=== PATIENT | female | born 1930 | race Caucasian/White ===

== ENCOUNTER → 2016-06-02 | Outpatient (CLI) | payer MEDICARE, BC ==
[2016-05-19 10:27] VITALS: BP 134/63
[~2016-06-02] MED LIST: AMLO10TA2 PO; AMLO2.5T2 PO; AMLO5TAB2 PO; ASPI81TA2 PO; ASPI81TA9 PO; ATOR10TA60 PO; BACI1TAB2 PO; BENZ100C PO; CARV12.52 PO; CARV25TA2 PO; CARV3.122 PO; CHLO25TA PO; CHOL100013 PO; CIPR250T30 PO; CLIN300C86; CLIN300C86 PO; CLON0.1T; CLON0.1T PO; CLON1PAT2 TD; CLON1PAT2 TP; CRESTOR20 MG; DOCU-27 PO; FURO40TA4 PO; HYDR-2762 PO; INSU100I17 SQ; INSU100I18 SQ; INSU100I7 SQ; IPRA3AMP IH; LOSA100T6 PO; LOSA50TA6; MAGN400T22 PO; MECL25TA PO; METO10TA5 PO; METO10TA81 PO; METO25TA2; METO25TA9 PO; METO5TAB55 PO; OMEP40CA5 PO; ONDA4TAB12 PO; POTA10CA PO; SACC250C PO; SULF1TAB24; WARF1TAB PO; WARF2TAB7 PO; WARF3TAB; WARF3TAB PO; WARF3TAB7 PO; WARF4TAB PO; WARF4TAB7 PO
[2016-06-02 10:10] LABS: BASO % 1 % (0-3); EOS % 1 % (0-3); LYMPH # 1.2 x10^3/uL (1.0-4.8); LYMPH % 30 % (24-48); MEAN CORPUSCULAR HEMOGLOBIN 27 pg (25-35); MEAN CORPUSCULAR HGB CONC 32 g/dL (31-37); MEAN CORPUSCULAR VOLUME 83 fL (79-100); MONO # 0.4 x10^3/uL (0.0-1.1); MONO % 10 % (0-9); NEUT # 2.4 x10^3uL (1.8-7.7); NEUT % 58 % (31-73); PLATELET COUNT 132 x10^3/uL (140-400); RED BLOOD COUNT 3.72 x10^6/uL (3.50-5.40); WHITE BLOOD COUNT 4.1 x10^3/uL (4.0-11.0)
[2016-06-02 10:21] LABS: ALBUMIN 3.8 g/dL (3.4-5.0); CALCIUM 9.1 mg/dL (8.5-10.1); CREATININE 3.1 mg/dL (0.6-1.0); GFR 14.2; MAGNESIUM 1.4 mg/dL (1.8-2.4); PHOSPHORUS 4.1 mg/dL (2.6-4.7)
[2016-06-03 08:10] LABS: CALCIUM PTH 9.2 mg/dL (8.7-10.3); CREATININE PTH 2.95 mg/dL (0.57-1.00); PHOSPHORUS PTH 3.9 mg/dL (2.5-4.5); PTH INTACT 131 pg/mL (15-65); eGFR IF AFRICAN AMERICAN 16 (>59); eGFR IF NONAFRICAN AMERICAN 14 (>59)
== END | disposition home or self-care (01) ==
LOC: LAB 09:26
PROVIDERS: ATTEND Nurse Practitioner Family
DX: I12.9 Hypertensive chronic kidney disease with stage 1 through stage 4 chronic kidney disease, or unspecified chronic kidney disease (principal); N18.4 Chronic kidney disease, stage 4 (severe); N17.9 Acute kidney failure, unspecified; D63.1 Anemia in chronic kidney disease; E11.21 Type 2 diabetes mellitus with diabetic nephropathy
CPT/HCPCS: 36415; 80069; 83735; 83970; 85027; 96372

== ENCOUNTER 2016-06-27 16:58 | Inpatient (IN) | payer MEDICARE, BC ==
[~2016-06-27] VITALS: Ht 154.9 cm; Wt 53.2 kg
--- NOTE | 2016-06-27 17:48 | EKG ---
[address] [address] Test Date: 2016-06-27 Test Time: 17:18:26 Pat Name: JAMEEL AC Department: Room: Gender: F [employer] Supervisor: PATY : 1930 Requested By: KAITLIN SHEIKH Order Number: [id number] Reading MD: Federico Biswas Measurements Intervals [place] Rate: 78 P: DE: QRS: 5 QRSD: 84 T: 5 QT: 360 QTc: 414 Interpretive Statements SINUS RHYTHM Electronically Signed On 06-29-2016 15:36:31 CDT by Federico Biswas
[2016-06-27 18:15] LABS: BILIRUBIN,URINE NEG (NEG); CLARITY,URINE HAZY; COLOR,URINE YELLOW; GLUCOSE,URINE NEG (NEG); NITRITE,URINE NEG (NEG); UROBILINOGEN,URINE 0.2 mg/dL (0.2 mg/dL)
[2016-06-27 18:16] LABS: BACTERIA,URINE 0 /HPF (0-FEW)
[2016-06-27 18:17] LABS: SQUAMOUS EPITHELIAL CELL,UR MANY /LPF
[2016-06-27 18:25] LABS: HYALINE CASTS, URINE FEW /HPF
[2016-06-27 19:07] LABS: BASO % 1 % (0-3); EOS % 1 % (0-3); HEMATOCRIT 29.4 % (36.0-47.0); HEMOGLOBIN 9.4 g/dL (12.0-15.5); LYMPH # 1.3 x10^3/uL (1.0-4.8); LYMPH % 30 % (24-48); MEAN CORPUSCULAR HEMOGLOBIN 27 pg (25-35); MEAN CORPUSCULAR HGB CONC 32 g/dL (31-37); MEAN CORPUSCULAR VOLUME 83 fL (79-100); MONO # 0.4 x10^3/uL (0.0-1.1); MONO % 9 % (0-9); NEUT # 2.6 x10^3uL (1.8-7.7); NEUT % 59 % (31-73); PLATELET COUNT 159 x10^3/uL (140-400); RED BLOOD COUNT 3.55 x10^6/uL (3.50-5.40); RED CELL DISTRIBUTION WIDTH 16.3 % (11.5-14.5); WHITE BLOOD COUNT 4.4 x10^3/uL (4.0-11.0)
--- NOTE | 2016-06-27 19:21 | RAD ---
Examination: CT head without contrast. HISTORY History of dizziness, vision changes. COMPARISON 03/23/2016. TECHNIQUE Axial CT images of the head without contrast. Exposure: One or more of the following dose reduction technique were utilized for this examination: 1. Automated exposure control. 2.Adjustment of MA and /or KV according to patient size. 3. Use of iterative reconstruction technique. Findings: There is no evidence of midline shift. Moderate bilateral periventricular white matter hypodensities likely chronic small vessel ischemic disease. There is no acute intracranial bleed or extra-axial fluid collection identified. The casiano-white matter differentiation is maintained. The visualized basal cisterns are not uneffaced. The visualized paranasal sinuses, mastoid air cells are clear. IMPRESSION No acute intracranial findings. Electronically signed by: Yassine Lutz (Jun 27, 2016 19:20:12)
--- NOTE | 2016-06-27 19:38 | ED.ADGEN ---
Past History Past Medical History: A-Fib, Diabetes, GERD, Heart Disease, Hypertension, Renal Disease, Other Past Surgical History: Appendectomy, Cholecystectomy, Coronary Bypass Surgery, Hysterectomy, Other Smoking: Non-smoker Alcohol Use: None Drug Use: None Adult General Chief Complaint Chief Complaint "My eyes were twittering today.. no vision changes.. it just seemed like they were jerky... It is not doing it now.. but it happens every so often.. I got this new pace maker.. and I even called them... they said it would not may both my eyes jerk.. .. I am getting treated for sinusitis.. by Dr. Collins.... and I do have bad kidneys... I see [facility] for.the kidneys... .. and I go to [facility] for the cardiac stuff.. it is just irritating... every thing else is working... " HPI HPI Patient is a 86 year old female who presents with above hx and complaints of what she describes as nystagmus. Patient states no particular vision field is affected.. Terminal positioning of eyes does not induce nystagmus currently. It does not occur when he went up or down stairs. It does not occur with movement of head or neck. Patient denies any mental status changes or confusion. Denies any weakness or difficulty with ambulation. Patient denies any recent trauma. Patient recently being treated for sinusitis by Dr. Collins and antibiotic. No other changes in meds. No history of travel or ill contacts. Patient has extensive medical history with coronary artery disease , bypass surgery 4. New pacemaker placement,.. History of hysterectomy , bladder lift, cholecystectomy, chronic renal disease , GERD, DVT, Kidney stones, Severe arthritis, Afib, ,diabetes , hypertension, frequent urinary tract infections. Daughter had bedside states she appears to be at her baseline both mentally and physically. Daughter has not witnessed the terminal nystagmus. Multiple attempts to induce nystagmus in exam room without success. Pt. advises she will not be admitted. Pt. just wants to see if anything can be done out pt. Pt. advises if it is her kidneys.. she will not do any dialysis in any form. Review of Systems Review of Systems Constitutional: Denies fever or chills [] Eyes: Denies change in visual acuity, redness, or eye pain [] HENT: Denies nasal congestion or sore throat [] Respiratory: Denies cough or shortness of breath [] Cardiovascular: No additional information not addressed in HPI [] GI: Denies abdominal pain, nausea, vomiting, bloody stools or diarrhea [] : Denies dysuria or hematuria [] Musculoskeletal: Denies back pain or joint pain. Complaints of generalized fatigue Integument: Denies rash or skin lesions [] Neurologic: Denies headache, focal weakness or sensory changes [] complaints of nystagmus and dizziness Endocrine: Denies polyuria or polydipsia [] Family History Family History Noncontributory Current Medications Current Medications See nursing for home meds Allergies Allergies Allergies Coded Allergies Type Severity Reaction Last Updated Verified exenatide Allergy Intermediate Nausea and Vomiting 04/19/16 Yes oxycodone Allergy Intermediate Nausea and Vomiting 11/27/14 Yes pregabalin Allergy Intermediate Rash 04/19/16 Yes Physical Exam Physical Exam Constitutional: , no acute distress, non-toxic appearance. [] HENT: Normocephalic, atraumatic, bilateral external ears normal, oropharynx moist, no oral exudates, nose normal. [] Eyes: PERRLA, EOMI, conjunctiva normal, no discharge. No nystagmus. Fundus generally benign. No appreciable field deficits Neck: Normal range of motion, no tenderness, supple, no stridor. No bruits appreciated Cardiovascular:Heart rate regular rhythm, no murmur [] Lungs & Thorax: Bilateral breath sounds clear to auscultation. Old surgical scar. Pace maker scar Abdomen: Bowel sounds normal, soft, no tenderness, no masses, no pulsatile masses. [Old surgical scars. Patient declines rectal exam this time. Skin: Warm, dry, no erythema, no rash. Poor turgor Back: No tenderness, no CVA tenderness. Mild kyphosis Extremities: No tenderness, no cyanosis, no clubbing, ROM intact, no edema. Arthritic changes Neurologic: Alert and oriented X 3, normal motor function, normal sensory function, no focal deficits noted. DTR +2 patella and brachial. Right-hand dominant distal vibratory intact Psychologic: Affect anxious,, judgement normal, mood normal. [] Current Patient Data Vital Signs Vital Signs Date Time Temp Pulse Resp B/P Pulse Ox O2 Delivery O2 Flow Rate FiO2 06/27/16 17:05 98.3 71 14 100 Room Air Lab Results Laboratory Tests Test 06/27/16 17:24 06/27/16 17:34 06/27/16 19:15 White Blood Count 4.4x10^3/uL (4.0-11.0) Red Blood Count 3.55x10^6/uL (3.50-5.40) Hemoglobin 9.4g/dL (12.0-15.5) L Hematocrit 29.4% (36.0-47.0) L Mean Corpuscular Volume 83fL (79-100) Mean Corpuscular Hemoglobin 27pg (25-35) Mean Corpuscular Hemoglobin Concent 32g/dL (31-37) Red Cell Distribution Width 16.3% (11.5-14.5) H Platelet Count 159x10^3/uL (140-400) Neutrophils (%) (Auto) 59% (31-73) Lymphocytes (%) (Auto) 30% (24-48) Monocytes (%) (Auto) 9% (0-9) Eosinophils (%) (Auto) 1% (0-3) Basophils (%) (Auto) 1% (0-3) Neutrophils # (Auto) 2.6x10^3uL (1.8-7.7) Lymphocytes # (Auto) 1.3x10^3/uL (1.0-4.8) Monocytes # (Auto) 0.4x10^3/uL (0.0-1.1) Eosinophils # (Auto) 0.0x10^3/uL (0.0-0.7) Basophils # (Auto) 0.0x10^3/uL (0.0-0.2) Erythrocyte Sedimentation Rate 30 (0-25) H Sodium Level 144mmol/L (136-145) Potassium Level 5.2mmol/L (3.5-5.1) H Chloride Level 111mmol/L (98-107) H Carbon Dioxide Level 19mmol/L (21-32) L Anion Gap 14 (6-14) Blood Urea Nitrogen 50mg/dL (7-20) H Creatinine 2.7mg/dL (0.6-1.0) H Estimated GFR (Cockcroft-Gault) 16.7 Glucose Level 140mg/dL (70-99) H Calcium Level 9.7mg/dL (8.5-10.1) Total Bilirubin 0.5mg/dL (0.2-1.0) Direct Bilirubin 0.1mg/dL (0.0-0.2) Aspartate Amino Transferase (AST) 79U/L (15-37) H Alanine Aminotransferase (ALT) 55U/L (14-59) Alkaline Phosphatase 106U/L (46-116) Creatine Kinase 36U/L (26-192) Creatine Kinase MB (Mass) 0.6ng/mL (0.0-3.6) Creatine Kinase MB Relative Index 1.7% (0-4) Troponin I Quantitative 0.023ng/mL (0-0.055) C-Reactive Protein 1.7mg/L (0-3.3) Total Protein 7.7g/dL (6.4-8.2) Albumin 4.1g/dL (3.4-5.0) Urine Collection Type Unknown Urine Color Yellow Urine Clarity Hazy Urine pH 5.0 Urine Specific [place] 1.010 Urine Protein 30 mg/dl (NEG-TRACE) Urine Glucose (UA) Negmg/dL (NEG) Urine Ketones (Stick) Negmg/dL (NEG) Urine Blood Neg (NEG) Urine Nitrite Neg (NEG) Urine Bilirubin Neg (NEG) Urine Urobilinogen Dipstick 0.2mg/dL (0.2 mg/dL) Urine Leukocyte Esterase Trace (NEG) Urine RBC 1-2/HPF (0-2) Urine WBC 5-10/HPF (0-4) Urine Squamous Epithelial Cells Many/LPF Urine Bacteria 0/HPF (0-FEW) Urine Hyaline Casts Few/HPF Urine Mucus Mod/LPF Prothrombin Time 17.8SEC (9.4-11.4) H Prothrombin Time INR 1.7 (0.9-1.1) H PTT 28SEC (23-33) EKG EKG My interpretation of EKG shows a sinus rhythm at 78 bpm. With no acute findings of STEMI or marked morphology changes. Radiology/Procedures Radiology/Procedures My interpretation CT head shows no shift, mass, edema, bleed, or fracture. Some mild generalized at the appropriate for age. No findings of signficant sinusitis []. . Chest x-ray pending at time of admission. Course & Med Decision Making Course & Med Decision Making Pertinent Labs and Imaging studies reviewed. (See chart for details). Pt. did relay hx of intake of bananas daily Informed delay in labs because they are being sent to [facility] to be ran. Discussed presentation, testing and treatment plan with Dr. Collins- Will admit for further evaluation and treatment. [] Final Impression Final Impression 1. Complaints of terminal nystagmus [] 2. Urinary tract infection 3. Anemia-normocytic 4. Acute on chronic renal failure 5. Hyperkalemia Problems: Dragon Disclaimer Dragon Disclaimer This electronic medical record was generated, in whole or in part, using a voice recognition dictation system. SLADE ARIAS MD Jun 27, 2016 19:38
[2016-06-27 20:13] LABS: SEDIMENTATION RATE 30 (0-25)
[2016-06-27 20:54] LABS: ALBUMIN 4.1 g/dL (3.4-5.0); TOTAL PROTEIN 7.7 g/dL (6.4-8.2)
[2016-06-27 20:55] LABS: CALCIUM 9.7 mg/dL (8.5-10.1)
[2016-06-27 21:03] LABS: CREATININE 2.7 mg/dL (0.6-1.0); GFR 16.7
[2016-06-27 21:08] LABS: POTASSIUM 5.2 mmol/L (3.5-5.1); TOTAL BILIRUBIN 0.5 mg/dL (0.2-1.0)
[2016-06-27 21:18] LABS: DIRECT BILIRUBIN 0.1 mg/dL (0.0-0.2)
[2016-06-27] MEDS ORDERED: SODIUM BICARB ADULT 8.4% 50 MEQ/50 ML DISP.SYRIN. IV ONE (22:30)
[2016-06-27] MEDS ORDERED: DEXTROSE 50% 25 GM / 50ML DISP.SYRIN. IV ONE (22:30)
[2016-06-27] MEDS ORDERED: INSULIN REGULAR 100 UNIT/ML 10ML VIAL. IV ONE (22:30)
[2016-06-27] MEDS ORDERED: SODIUM POLYSTYRENE SULFONATE 15 GM/60 ML ORAL.SUSP. PO ONE (22:30)
[2016-06-27] MEDS ORDERED: CALCIUM CHLORIDE 1,000 MG/10 ML VIAL IV ONE (22:30)
[2016-06-27 22:40] LABS: C REACTIVE PROTEIN 1.7 mg/L (0-3.3)
--- NOTE | 2016-06-27 22:49 | ACF ---
Admission Criteria Forms URINARY COMPLICATIONS Clinical Indications for Inpatient Care (Place 'X' for any and all applicable criteria): Ongoing inpatient care may be indicated for urinary complications with ANY ONE of the following: [ ]I. Urinary tract infection requiring inpatient care as indicated by ANY ONE of the following(8)(19)(20): [ ]a) Severe symptoms (eg, high fever, severe pain) [ ]b) Vomiting or dehydration requiring ongoing inpatient care [ ]c) IV antibiotic needs that cannot be managed at lower level of care [ ]d) Hemodynamic instability [ ]e) Obstruction of collecting system by stone or tumor [ ]II. Urinary retention requiring drainage or surgery (3)(4)(5)(17)(18) [X]III. Renal failure (Use Renal Failure Criteria for further information.) [ ]IV. Oliguria(30) [ ]V. Post obstructive diuresis requiring close monitoring of urine output and intravenous compensation for excessive fluid losses(33) Extended stay beyond goal length of stay for primary condition may be needed until ALL of the following are present(3)(4)(5)(8): [ ]a) Renal function (creatinine) at baseline, or daily decreases in creatinine consistent with renal function return [ ]b) Voiding adequately or with urinary catheter or percutaneous suprapubic tube and management regimen in place that is performable at lower level of care. [ ]c) Urine output adequate [ ]d) Fever absent or resolving [ ]e) Infection absent or treatable at next level of care The original [employer] content created by [employer] has been revised. The portions of the content which have been revised are identified through the use of italic text or in bold, and [facility] has neither reviewed nor approved the modified material. All other unmodified content is copyright [employer] Please see references footnoted in the original [employer] edition 2016 Admission Criteria Met?: Yes J LUIS WIGGINS Jun 27, 2016 22:49
[2016-06-27] MEDS: ONDANSETRON PF 4 MG/2 ML VIAL. IV PRN (23:20)
[2016-06-28] VITALS (15 sets, daily range): BP systolic 127–171; BP diastolic 58–89
[2016-06-28] MEDS: ONDANSETRON PF 4 MG/2 ML VIAL. IV PRN (03:15)
[2016-06-28 06:34] LABS: ALBUMIN 3.4 g/dL (3.4-5.0); ALBUMIN/GLOBULIN RATIO 0.8 (1.0-1.7); CALCIUM 10.2 mg/dL (8.5-10.1); CREATININE 2.5 mg/dL (0.6-1.0); GFR 18.2; POTASSIUM 4.1 mmol/L (3.5-5.1); TOTAL BILIRUBIN 0.5 mg/dL (0.2-1.0); TOTAL PROTEIN 7.6 g/dL (6.4-8.2)
[2016-06-28 07:06] LABS: BASO % 1 % (0-3); EOS % 0 % (0-3); HEMATOCRIT 31.3 % (36.0-47.0); HEMOGLOBIN 9.8 g/dL (12.0-15.5); LYMPH # 1.1 x10^3/uL (1.0-4.8); LYMPH % 27 % (24-48); MEAN CORPUSCULAR HEMOGLOBIN 26 pg (25-35); MEAN CORPUSCULAR HGB CONC 31 g/dL (31-37); MEAN CORPUSCULAR VOLUME 82 fL (79-100); MONO # 0.3 x10^3/uL (0.0-1.1); MONO % 7 % (0-9); NEUT # 2.6 x10^3uL (1.8-7.7); NEUT % 65 % (31-73); PLATELET COUNT 150 x10^3/uL (140-400); WHITE BLOOD COUNT 4.1 x10^3/uL (4.0-11.0)
[2016-06-28] MEDS ORDERED: AMLODIPINE BESYLATE 10 MG TABLET PO PRN (09:00)
[2016-06-28] MEDS: FUROSEMIDE 40 MG TABLET PO SCH (09:27)
[2016-06-28] MEDS: ASPIRIN 81 MG TAB.CHEW PO SCH (09:27)
[2016-06-28] MEDS: METOCLOPRAMIDE 5 MG TABLET PO SCH ×3 (09:27→16:57)
[2016-06-28] MEDS: CARVEDILOL 12.5 MG TABLET PO SCH ×2 (09:28→20:26)
[2016-06-28] MEDS: INSULIN DETEMIR 300 UNITS/3 ML INSULN.PEN. SQ SCH ×2 (09:30→20:32)
[2016-06-28] MEDS ORDERED: DEXTROSE 50% 25 GM / 50ML DISP.SYRIN. IV PRN (11:15)
[2016-06-28] MEDS ORDERED: INSULIN ASPART 300 UNITS/3 ML INSULN.PEN SQ SCH (11:30)
[2016-06-28] MEDS: INSULIN ASPART 300 UNITS/3 ML INSULN.PEN SQ SCH ×3 (11:30→20:32)
[2016-06-28] MEDS: IV NORMAL SALINE 1,000ML 1,000 ML IV SCH (13:15)
--- NOTE | 2016-06-28 14:39 | RAD ---
Portable abdomen, 2 views, 06/28/2016: History: Abdominal pain Gas is present in large and small bowel in a nonspecific pattern. No free air is seen in the abdomen. There is no evidence of organomegaly. Aortoiliac calcific plaquing is present. There is a stent projected over the left upper quadrant which probably lies in the left main renal artery. Surgical wires overlie the abdomen and pelvis. A bipolar right hip prosthesis is in place. IMPRESSION: No acute abdominal abnormality is detected.
[2016-06-28] MEDS: HYDROCODONE/APAP 7.5/325MG TABLET. PO PRN (20:26)
[2016-06-28] MEDS: ATORVASTATIN CALCIUM 10 MG TABLET. PO SCH (20:26)
[2016-06-29] VITALS (9 sets, daily range): BP systolic 112–181; BP diastolic 47–85
--- NOTE | 2016-06-29 01:03 | HP ---
ADMIT DATE: 06/28/2016 HISTORY OF PRESENT ILLNESS: The patient is an 86-year-old female with multiple medical problems, apparently noted that she was increasingly weak some problems focusing her eyes and she has blurred vision. She does has generalized weakness. She also has some nausea and unable to eat or drink much at all. The patient initially seen in the Emergency Room and was admitted for changes in vision or nystagmus, urinary tract infection, anemia with normocytic, [id number] of chronic renal failure, and hyperkalemia. PAST MEDICAL HISTORY: Coronary artery disease, bypass surgery x 4, pacemaker placement, hysterectomy, bladder lift, cholecystectomy, chronic renal disease, history of DVT, kidney stone, severe arthritis, atrial fibrillation, diabetes, hypertension, frequent urinary tract infections. FAMILY HISTORY: Unremarkable. ALLERGIES: OXYCODONE, LYRICA, and EXENATIDE. SOCIAL HISTORY: The patient denies smoking, alcohol, or drug use. MEDICATIONS: Norvasc 10, aspirin 81, Lipitor 10, carvedilol 12.5 b.i.d., vitamin D, Colace, furosemide 40, hydrocodone 7/325 q.6. p.r.n., insulin Flexpen, insulin Levemir Flexpen 12 units b.i.d., losartan 100 mg daily, Reglan 5, metolazone 10, Prilosec 40, Zoloft 8. REVIEW OF SYSTEMS: The patient denies any headaches, visual changes except for the nystagmus ____ and she denies any problems swallowing. She denies chest pain, shortness of breath, does have abdominal discomfort and nausea with some mild vomiting. Denies any problems with bowels or bladder and neurologically stable. PHYSICAL EXAMINATION: GENERAL: This is alert, pleasant white female looking younger than stated age. VITAL SIGNS: Blood pressure 128/58, respiratory rate 17, pulse 81, temperature upwards of 100 degrees. HEENT: The patient's head was atraumatic, normocephalic. Eyes: PERRLA without jaundice. Mouth and throat were normal. NECK: Supple, without JVD, carotid bruits. No thyromegaly. LUNGS: Diminished throughout, but poor movement of air. CARDIOVASCULAR: Irregularly irregular rhythm consistent with chronic atrial fibrillation. ABDOMEN: Soft, nontender, no rebound or guarding, Positive bowel sounds, no hepatosplenomegaly. EXTREMITIES: No clubbing, cyanosis, no edema. NEUROLOGIC: The patient was alert, oriented x 3. LABORATORY DATA: The patient's urine did show some pus cells. White count was 4, hemoglobin 9.4 and hematocrit 29. Otherwise, her chemistries were unremarkable except for her blood sugar being elevated and of course she has chronic kidney disease. IMPRESSION: Nystagmus, weakness type 2 diabetes, CKD 4, generalized weakness, failure to thrive, and elevated liver enzymes. PLAN: The patient will be given IV fluids, monitored carefully. Monitor for any signs of infection or sepsis. Recheck her liver enzymes and make further evaluation and always as indicated. AN CARREON MD DR: ANA/luis JOB#: [id number] / [id number]
[2016-06-29] MEDS: IV NORMAL SALINE 1,000ML 1,000 ML IV SCH ×2 (02:45→16:04)
[2016-06-29 06:50] LABS: BASO % 1 % (0-3); EOS % 1 % (0-3); HEMATOCRIT 28.1 % (36.0-47.0); HEMOGLOBIN 9.2 g/dL (12.0-15.5); LYMPH # 1.7 x10^3/uL (1.0-4.8); LYMPH % 32 % (24-48); MEAN CORPUSCULAR HEMOGLOBIN 27 pg (25-35); MEAN CORPUSCULAR HGB CONC 33 g/dL (31-37); MEAN CORPUSCULAR VOLUME 82 fL (79-100); MONO # 0.4 x10^3/uL (0.0-1.1); MONO % 9 % (0-9); NEUT % 58 % (31-73); PLATELET COUNT 147 x10^3/uL (140-400); RED BLOOD COUNT 3.43 x10^6/uL (3.50-5.40); RED CELL DISTRIBUTION WIDTH 16.4 % (11.5-14.5); WHITE BLOOD COUNT 5.2 x10^3/uL (4.0-11.0)
[2016-06-29 07:00] LABS: CALCIUM 8.7 mg/dL (8.5-10.1); CREATININE 2.4 mg/dL (0.6-1.0); GFR 19.1; POTASSIUM 3.6 mmol/L (3.5-5.1)
[2016-06-29] MEDS: INSULIN ASPART 300 UNITS/3 ML INSULN.PEN SQ SCH ×4 (07:22→20:42)
[2016-06-29] MEDS: ASPIRIN 81 MG TAB.CHEW PO SCH (08:05)
[2016-06-29] MEDS: CARVEDILOL 12.5 MG TABLET PO SCH ×2 (08:05→20:27)
[2016-06-29] MEDS: METOCLOPRAMIDE 5 MG TABLET PO SCH ×3 (08:06→16:06)
[2016-06-29] MEDS: FUROSEMIDE 40 MG TABLET PO SCH (08:06)
[2016-06-29] MEDS: HYDROCODONE/APAP 7.5/325MG TABLET. PO PRN ×2 (08:13→21:04)
[2016-06-29] MEDS: INSULIN DETEMIR 300 UNITS/3 ML INSULN.PEN. SQ SCH ×2 (09:00→20:41)
[2016-06-29] MEDS ORDERED: WARFARIN 5 MG TABLET. PO ONE (16:00)
[2016-06-29] MEDS: ATORVASTATIN CALCIUM 10 MG TABLET. PO SCH (20:27)
[2016-06-30 00:01] VITALS: BP 120/57
[2016-06-30 04:00] VITALS: BP 127/61
[2016-06-30 05:00] VITALS: BP 122/60
[2016-06-30] MEDS: IV NORMAL SALINE 1,000ML 1,000 ML IV SCH (05:20)
[2016-06-30 06:22] LABS: BASO % 1 % (0-3); EOS % 1 % (0-3); HEMATOCRIT 24.6 % (36.0-47.0); HEMOGLOBIN 7.9 g/dL (12.0-15.5); LYMPH # 1.4 x10^3/uL (1.0-4.8); LYMPH % 38 % (24-48); MEAN CORPUSCULAR HEMOGLOBIN 27 pg (25-35); MEAN CORPUSCULAR HGB CONC 32 g/dL (31-37); MEAN CORPUSCULAR VOLUME 82 fL (79-100); MONO # 0.3 x10^3/uL (0.0-1.1); MONO % 8 % (0-9); NEUT # 1.9 x10^3uL (1.8-7.7); NEUT % 52 % (31-73); PLATELET COUNT 122 x10^3/uL (140-400); RED CELL DISTRIBUTION WIDTH 15.8 % (11.5-14.5); WHITE BLOOD COUNT 3.7 x10^3/uL (4.0-11.0)
[2016-06-30 06:33] LABS: CALCIUM 7.9 mg/dL (8.5-10.1); CREATININE 2.1 mg/dL (0.6-1.0); GFR 22.3; POTASSIUM 3.7 mmol/L (3.5-5.1)
[2016-06-30] MEDS: HYDROCODONE/APAP 7.5/325MG TABLET. PO PRN ×2 (07:07→13:54)
[2016-06-30] MEDS: CARVEDILOL 12.5 MG TABLET PO SCH (07:07)
[2016-06-30] MEDS: ASPIRIN 81 MG TAB.CHEW PO SCH (07:07)
[2016-06-30] MEDS: METOCLOPRAMIDE 5 MG TABLET PO SCH ×2 (07:07→10:57)
[2016-06-30] MEDS: FUROSEMIDE 40 MG TABLET PO SCH (07:07)
[2016-06-30 07:30] VITALS: BP 154/71
[2016-06-30] MEDS: INSULIN ASPART 300 UNITS/3 ML INSULN.PEN SQ SCH ×2 (07:30→11:30)
[2016-06-30] MEDS ORDERED: MAGNESIUM SULFATE 2GM 50 ML IV ONE (08:00)
[2016-06-30] MEDS: INSULIN DETEMIR 300 UNITS/3 ML INSULN.PEN. SQ SCH (08:20)
[2016-06-30] MEDS ORDERED: AMLODIPINE BESYLATE 5 MG TABLET PO SCH (09:00)
[2016-06-30] MEDS ORDERED: LOSARTAN 50 MG TABLET. PO SCH (09:00)
[2016-06-30] MEDS ORDERED: EPOETIN ALFA 10,000 UNIT/ML VIAL. SQ ONE (09:00)
[2016-06-30 15:00] VITALS: BP 164/54
[2016-06-30] MEDS ORDERED: WARFARIN 5 MG TABLET. PO ONE (16:00)
--- NOTE | 2016-06-30 20:07 | DS ---
DATE OF DISCHARGE: 06/30/2016 HOSPITAL COURSE: The patient came in through the Emergency Room. She was extremely weak in condition and she has CKD 5, but refuses dialysis. In any case, she was noted to be dehydrated. Her magnesium was low as well as her potassium. The patient was admitted, given IV fluids, electrolyte replacement and magnesium replacement. The patient also was low on her calcium and will be given additional potassium as an outpatient. Her creatinine went from 2.7 down to 2.1 showing the degrees of dehydration. In any case, the patient made excellent progress during the rest of her hospitalization. She will be discharged home. See MRAD. Decreased activity. She will be on a diabetic diet and check her electrolytes as an outpatient including magnesium and calcium. IMPRESSION: Generalized weakness, hypokalemia, hypomagnesemia, type 2 diabetes, chronic kidney disease 5 and elevated liver enzymes. The patient did not want to be aggressive on any further treatment, will be followed up as an outpatient. AN CARREON MD DR: ANA/luis JOB#: [id number] / [id number]
--- NOTE | 2016-07-01 01:20 | CONS ---
DATE OF CONSULTATION: 06/29/2016 NEURO CONSULT REFERRING PHYSICIAN: Dr. Collins. REASON FOR CONSULTATION: Generalized weakness and fluttering of her eyes. HISTORY OF PRESENT ILLNESS: This is an 86-year-old right-handed white female, who was admitted to Emergency Room today after she presented with a chief complaint of 3-4 days history of "fluttering of her eyes". The patient also complains of generalized weakness. She denies any recent falls or head injuries. The patient denies headaches, visual disturbances, nausea, vomiting, chest pain, shortness of breath or palpitation, dysarthria, dysphagia or vertigo. Initial nonenhanced head CT scan revealed no acute intracranial process, but shows chronic small vessel ischemic changes. PAST MEDICAL HISTORY: Significant for diabetes mellitus, paroxysmal atrial fibrillations, GERD, hypertension, coronary artery disease, chronic renal failure, osteoarthritis, kidney stones, urinary tract infections, and hyperlipidemia. PAST SURGICAL HISTORY: Significant for coronary artery bypass graft, cholecystectomy, hysterectomy, status post permanent pacemaker placement, appendectomy, and bilateral total knee replacement. SOCIAL HISTORY: The patient lives independently. She denies smoking, alcohol drinking, or illicit drug use. CURRENT MEDICATIONS: Include: Warfarin, losartan, amlodipine, magnesium, Lipitor, hydrocodone/acetaminophen, insulin NovoLog, Reglan, Lasix, carvedilol, and aspirin. ALLERGIES: OXYCODONE, LYRICA, and EXENATIDE. REVIEW OF SYSTEMS: A 10-point review of system was performed and as described in the history of present illness with fluttering of her eyes, generalized weakness and arthritic pain. PHYSICAL EXAMINATION: GENERAL: Well-developed, well-nourished white female, not in acute distress. She weighs 117 pounds. VITAL SIGNS: Blood pressure 159/75, respiratory rate 20, pulse is 82 and regular, temperature afebrile, oxygen saturation 96% on room air. HEENT: Normocephalic, atraumatic; otherwise, unremarkable. NECK: Supple. Negative for carotid bruit, lymphadenopathy, or thyromegaly. LUNGS: Diminished breath sounds, but no wheezing or rales. CARDIOVASCULAR: Regular rhythm. Normal S1, S2. There is a 2/6 systolic murmur. ABDOMEN: Soft. Bowel sounds positive. EXTREMITIES: Negative for cyanosis, clubbing or pitting edema. NEUROLOGIC: 1. MENTAL STATUS: The patient is alert and oriented x 3. The speech is fluent. There is no language dysfunction. Memory: The patient recalls 2/3 immediately and after 1 and 3 minutes. Judgment and abstract thinking is fair. The patient denies hallucination or delusion. 2. CRANIAL NERVES: Visual uriostegui are full. The pupils are reactive to light and accommodation. The extraocular movements are intact. There is no nystagmus. There is no facial motor or sensory deficit. Hearing is diminished on the left side. The palate is elevated symmetrically. Sternocleidomastoid muscles are powerful bilaterally. The patient shrugs her shoulders symmetrically and protrudes her tongue in the midline without fasciculation or atrophy. 3. MOTOR: No focal muscle bulk was seen. The tone is normal. The strength is 4/5 throughout. The patient has a mild resting and postural tremor and postural and kinetic tremors of both hands. Deep tendon reflexes were symmetric and hypoactive with absent Achilles responses. Gait: The stance is steady. DIAGNOSTIC DATA: Head CT scan as described above in the history of present illness is negative for acute intracranial process. LABORATORY DATA: CBC revealed white blood cells of 5.2 thousand, hemoglobin 9.2, hematocrit 28.1, and platelet count 147,000. Chemistry revealed sodium of 137, potassium 3.7, chloride 108, CO2 25. BUN 31, creatinine 2.1. Dated on 02/02/2016, glucose 115, magnesium is 1.3. Cardiac enzymes are normal. Troponin level is 0.023. IMPRESSION: 1. History of eye fluttering -- nystagmus; however, the current neurological examination showed no evidence of nystagmus in all gazes. 2. Generalized weakness, probably multifactorial. 3. Multiple medical problems include hypertension, coronary artery disease, severe arthritis, deep venous thrombosis, atrial fibrillations, diabetes mellitus, anemia, and hyperlipidemia. RECOMMENDATIONS: 1. Continue with current management initiated by Dr. Collins. 2. Physical therapy as tolerated. From neurologic standpoint review the patient is neurologically stable. M Jud SORIANO MD DR: LALA/luis JOB#: [id number] / [id number]
== END 2016-06-30 16:00 | disposition home or self-care (01) | DRG 683 ==
LOC: ER 16:58 → ICU 22:16
PROVIDERS: ADMIT Family Medicine; ATTEND Family Medicine
DX: N17.9 Acute kidney failure, unspecified (principal); N39.0 Urinary tract infection, site not specified; I12.0 Hypertensive chronic kidney disease with stage 5 chronic kidney disease or end stage renal disease; E11.22 Type 2 diabetes mellitus with diabetic chronic kidney disease; E78.5 Hyperlipidemia, unspecified; E83.42 Hypomagnesemia; E87.5 Hyperkalemia; E87.6 Hypokalemia; I25.10 Atherosclerotic heart disease of native coronary artery without angina pectoris; I48.91 Unspecified atrial fibrillation; K21.9 Gastro-esophageal reflux disease without esophagitis; Z96.653 Presence of artificial knee joint, bilateral; H55.00 Unspecified nystagmus; E86.0 Dehydration; D64.9 Anemia, unspecified; M19.90 Unspecified osteoarthritis, unspecified site; N18.5 Chronic kidney disease, stage 5; R62.7 Adult failure to thrive; Z86.718 Personal history of other venous thrombosis and embolism; Z87.440 Personal history of urinary (tract) infections; Z87.442 Personal history of urinary calculi; Z90.49 Acquired absence of other specified parts of digestive tract; Z90.710 Acquired absence of both cervix and uterus; Z95.0 Presence of cardiac pacemaker; Z95.1 Presence of aortocoronary bypass graft; Z88.5 Allergy status to narcotic agent; Z88.8 Allergy status to other drugs, medicaments and biological substances
CPT/HCPCS: 36415; 70450; 74020; 80048; 80053; 80076; 81001; 82150; 82553; 82947; 83605; 83690; 83735; 84484; 85027; 85610; 85651; 85730; 86140; 87086; 87641; 93005; G0238; J0885; J1815; J2405; J3475; J8597; 97110; 97530; 99285-25; J7030

== ENCOUNTER 2016-11-08 08:13 | Emergency (ER) | payer MEDICARE, BC ==
[~2016-11-08] VITALS: Ht 154.9 cm; Wt 51.6 kg
[~2016-11-08 08:13] MED LIST changes: +ASPI-612 PO; +ASPI-630 PO; -ASPI81TA2 PO; -ASPI81TA9 PO; +CLIN300C8; +CLIN300C8 PO; -CLIN300C86; -CLIN300C86 PO; +DOCU-109 PO; -DOCU-27 PO; -WARF1TAB PO; +WARF1TAB74 PO; -WARF3TAB; -WARF3TAB PO; +WARF3TAB54; +WARF3TAB54 PO; -WARF4TAB PO; +WARF4TAB68 PO
--- NOTE | 2016-11-08 08:57 | PHYS DOC ---
Past History Past Medical History: A-Fib, Diabetes, GERD, Heart Disease, Hypertension, Renal Disease, Other Past Surgical History: Appendectomy, Cholecystectomy, Coronary Bypass Surgery, Hysterectomy, Other Smoking: Non-smoker Alcohol Use: None Drug Use: None Adult General Chief Complaint Chief Complaint: WEAKNESS/GENERALIZED HPI HPI Patient is a 86-year-old female who presents with complaints of generalized weakness that has been going on for a couple days. Patient states she should be in dialysis but she refuses to be placed in that. She gets the Procrit shots periodically. Patient also has increased swelling in the left lower extremity has been going on for a week. Patient denies any fevers, chills, rashes, diarrhea, sick contacts. Patient is compliant with her medication regimen. Patient states that occasionally when she blows her nose she has some bleeding and currently is not having any nasal bleeding. Patient is on warfarin. Review of Systems Review of Systems Constitutional: Denies fever or chills [] Eyes: Denies change in visual acuity, redness, or eye pain [] HENT: Denies nasal congestion or sore throat. Intermittent nasal bleeds Respiratory: Denies cough or shortness of breath [] Cardiovascular: No chest pain GI: Denies abdominal pain, nausea, vomiting, bloody stools or diarrhea [] : Denies dysuria or hematuria [] Musculoskeletal: Denies back pain or joint pain [] Integument: Denies rash or skin lesions [] Neurologic: Denies headache, focal weakness or sensory changes. Generalized weakness Allergies Allergies Allergies Coded Allergies Type Severity Reaction Last Updated Verified exenatide Allergy Intermediate Nausea and Vomiting 04/19/16 Yes oxycodone Allergy Intermediate Nausea and Vomiting 11/27/14 Yes pregabalin Allergy Intermediate Rash 04/19/16 Yes Physical Exam Physical Exam Constitutional: Well developed, well nourished, no acute distress, non-toxic appearance. [] HENT: Normocephalic, atraumatic, bilateral external ears normal, oropharynx moist, no oral exudates, nose normal. [] Eyes: EOMI, conjunctiva normal, no discharge. [] Neck: Normal range of motion, no tenderness, trachea midline, no stridor. No JVD Cardiovascular:Heart rate regular rhythm, no murmur, normal perfusion, equal pulses Lungs & Thorax: Bilateral breath sounds clear to auscultation, no tachypnea Abdomen: Bowel sounds normal, soft, no tenderness, no masses, no pulsatile masses. [] Skin: Warm, dry, no erythema, no rash. [] Back: No tenderness, no CVA tenderness. [] Extremities: No tenderness, no cyanosis, no clubbing, ROM intact. Signs of peripheral vascular disease. Swelling of the left lower extremity with mild tenderness of the mid calf Neurologic: Alert and oriented X 3, normal motor function, ambulated in the ED at baseline, no focal deficits noted. [] Psychologic: Affect normal, judgement normal, mood normal. [] EKG EKG 0849 SR no stemi[] Radiology/Procedures Radiology/Procedures CXR: atelectasis vs early infiltrate. Of note clinically the patient does not have signs of pneumonia[] Course & Med Decision Making Course & Med Decision Making Pertinent Labs and Imaging studies reviewed. (See chart for details) US: no DVT Labs and imaging have been discussed with the patient and the family including normal labs and abnormalities. Patient states she will be rechecked in 2 days and agrees to follow-up as directed. Patient has remained in no distress and holding ED stay. Certainly her complaint of weakness can be related to her chronic anemia as well as her chronic renal problems. At the time of this ED evaluation there doesn't appear to be any acute process ongoing however the ED for recheck and reevaluation has been emphasized to the patient and the family. There are no reservations going home patient is requesting to be discharged. [] Dragon Disclaimer Dragon Disclaimer This chart was dictated in whole or in part using Voice Recognition software in a busy, high-work load, and often noisy Emergency Department environment. It may contain unintended and wholly unrecognized errors or omissions. Departure Departure: Impression: Primary Impression: Anemia Additional Impressions: Peripheral edema Chronic renal disease Disposition: HOME, SELF-CARE Condition: STABLE Referrals: AN CARREON MD (PCP) please follow up with pcp for recheck and re-evaluation in 2 days. Patient Instructions: Anemia, Nonspecific-Brief, Chronic Renal Insufficiency, Peripheral Edema Problem Qualifiers Jud CHOWDHURY MD Nov 08, 2016 08:57
[2016-11-08 09:15] LABS: BASO % 0 % (0-3); EOS % 1 % (0-3); HEMATOCRIT 25.2 % (36.0-47.0); HEMOGLOBIN 7.7 g/dL (12.0-15.5); LYMPH # 1.2 x10^3/uL (1.0-4.8); LYMPH % 25 % (24-48); MEAN CORPUSCULAR HEMOGLOBIN 22 pg (25-35); MEAN CORPUSCULAR HGB CONC 30 g/dL (31-37); MEAN CORPUSCULAR VOLUME 71 fL (79-100); MONO # 0.5 x10^3/uL (0.0-1.1); MONO % 10 % (0-9); NEUT # 3.1 x10^3uL (1.8-7.7); NEUT % 64 % (31-73); PLATELET COUNT 174 x10^3/uL (140-400); RED BLOOD COUNT 3.54 x10^6/uL (3.50-5.40); RED CELL DISTRIBUTION WIDTH 18.1 % (11.5-14.5); WHITE BLOOD COUNT 4.8 x10^3/uL (4.0-11.0)
--- NOTE | 2016-11-08 09:30 | RAD ---
Examination: 2 views of the chest History: History of chest discomfort, shortness of breath, abnormal lung sounds. Comparison: 07/16/2015 Findings: The [id number] several grossly appears unremarkable. Left-sided cardiac pacer is identified. Mild right lung base airspace opacities likely atelectasis or infiltrates. Trace right pleural effusion. Impression: 1. Mild right lung base airspace opacities likely atelectasis or infiltrates. Follow-up to resolution.
[2016-11-08 09:41] LABS: ALBUMIN 3.3 g/dL (3.4-5.0); ALBUMIN/GLOBULIN RATIO 0.8 (1.0-1.7); CALCIUM 8.7 mg/dL (8.5-10.1); CREATININE 3.8 mg/dL (0.6-1.0); GFR 11.2; MAGNESIUM 2.7 mg/dL (1.8-2.4); POTASSIUM 4.7 mmol/L (3.5-5.1); TOTAL BILIRUBIN 0.5 mg/dL (0.2-1.0); TOTAL PROTEIN 7.2 g/dL (6.4-8.2)
--- NOTE | 2016-11-08 09:49 | EKG ---
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
[2016-11-08 10:20] LABS: HYPOCHROMIA MOD; MICROCYTOSIS MOD; OVALOCYTES OCC; PLATELET CLUMP PRESENT; PLT ESTIMATE ADEQUATE (ADEQUATE); POLYCHROMASIA SLIGHT; SCHISTOCYTES OCC
[2016-11-08 10:54] LABS: BACTERIA,URINE 0 /HPF (0-FEW); BILIRUBIN,URINE NEG (NEG); CLARITY,URINE HAZY; COLOR,URINE STRAW; GLUCOSE,URINE NEG (NEG); NITRITE,URINE NEG (NEG); RBC,URINE 0 /HPF (0-2); SQUAMOUS EPITHELIAL CELL,UR OCC /LPF; UROBILINOGEN,URINE 0.2 mg/dL (0.2 mg/dL)
--- NOTE | 2016-11-08 11:08 | RAD ---
Examination: Ultrasound left lower extremity venous duplex History: History of swelling in the left leg. Comparison: None available Technique: Grayscale, color Doppler 2-D, spectral waveform analysis of the left lower extremity venous system were performed. Findings: The visualized common femoral vein, superficial femoral vein, popliteal vein demonstrates flow within. The proximal peroneal vein demonstrates flow within. The mid and distal peroneal veins and posterior tibialis veins are difficult to evaluate due to swelling. Impression: No evidence of deep venous thrombosis in the visualized left lower extremity venous system. The visualized mid and distal peroneal veins and posterior tibialis veins evaluation is limited due to leg swelling
[2016-11-08 12:00] VITALS: BP 157/72
== END 2016-11-08 12:23 | disposition home or self-care (01) ==
LOC: ER 08:13
DX: D64.9 Anemia, unspecified (principal); R60.0 Localized edema; E11.22 Type 2 diabetes mellitus with diabetic chronic kidney disease; I13.10 Hypertensive heart and chronic kidney disease without heart failure, with stage 1 through stage 4 chronic kidney disease, or unspecified chronic kidney disease; N18.9 Chronic kidney disease, unspecified; K21.9 Gastro-esophageal reflux disease without esophagitis; I48.91 Unspecified atrial fibrillation; Z95.1 Presence of aortocoronary bypass graft; Z88.5 Allergy status to narcotic agent; Z88.8 Allergy status to other drugs, medicaments and biological substances
CPT/HCPCS: 36415; 71020; 80053; 81001; 83735; 83880; 84443; 84484; 85025; 85610; 87086; 93005; 93971; 99285-25

== ENCOUNTER → 2016-11-12 | Outpatient (CLI) | payer MEDICARE, BC ==
[2016-11-12] VITALS (8 sets, daily range): BP systolic 110–143; BP diastolic 55–75
[2016-11-12 08:57] LABS: HEMATOCRIT 24.5 % (36.0-47.0); HEMOGLOBIN 7.6 g/dL (12.0-15.5)
--- NOTE | 2016-11-12 09:36 | NUR ---
Patient to room 109 for transfusion of 1 unit PRBC. Consent obtained. Vitals assessed. IV site started #20 gauge to right forearm x 3 attempts. Patient tolerated well, site flushes well with good blood return. Will monitor.
--- NOTE | 2016-11-12 10:43 | NUR ---
Dual nurse verification for blood transfusion performed at bedside. Tubing primed with normal saline prior to being primed with blood. Transfusion started at 1024. Rate of 100cc/hr. Patient closely monitored x 15 minutes. No adverse reaction noted. Rate increased to 150cc/hr. Will continue to closely monitor.
--- NOTE | 2016-11-12 13:18 | NUR ---
Transfusion ended at 1254. Vitals stable. IV site d/c'd. Patient awaiting ride home at this time, will monitor.
--- NOTE | 2016-11-12 14:01 | NUR ---
Patient stable 1 hour post transfusion, no adverse reaction noted. Vitals stable, see interventions. Patient still awaiting ride home. Will monitor.
== END | disposition home or self-care (01) ==
LOC: LAB 08:34
PROVIDERS: ATTEND Family Medicine
DX: D46.Z Other myelodysplastic syndromes (principal)
CPT/HCPCS: 36415; 36430; 36592; 85014; 85018; 86850; 86900; 86901; 86920; P9016

== ENCOUNTER → 2016-12-15 | Outpatient (CLI) | payer MEDICARE, BC ==
[2016-12-08 10:06] VITALS: BP 171/70
[~2016-12-15] MED LIST changes: +METO-239 PO; -METO25TA9 PO
[2016-12-15 10:04] LABS: BASO % 1 % (0-3); EOS % 1 % (0-3); HEMATOCRIT 28.9 % (36.0-47.0); LYMPH # 1.3 x10^3/uL (1.0-4.8); LYMPH % 36 % (24-48); MEAN CORPUSCULAR HEMOGLOBIN 22 pg (25-35); MEAN CORPUSCULAR HGB CONC 31 g/dL (31-37); MEAN CORPUSCULAR VOLUME 71 fL (79-100); MONO # 0.4 x10^3/uL (0.0-1.1); MONO % 10 % (0-9); NEUT % 53 % (31-73); PLATELET COUNT 166 x10^3/uL (140-400); RED BLOOD COUNT 4.04 x10^6/uL (3.50-5.40); RED CELL DISTRIBUTION WIDTH 19.5 % (11.5-14.5); WHITE BLOOD COUNT 3.7 x10^3/uL (4.0-11.0)
[2016-12-15 10:12] LABS: ALBUMIN 3.5 g/dL (3.4-5.0); CALCIUM 8.8 mg/dL (8.5-10.1); CREATININE 2.8 mg/dL (0.6-1.0); MAGNESIUM 2.3 mg/dL (1.8-2.4); PHOSPHORUS 3.9 mg/dL (2.6-4.7); POTASSIUM 4.7 mmol/L (3.5-5.1)
[2016-12-15 11:37] LABS: HYPOCHROMIA MOD; PLT ESTIMATE ADEQUATE (ADEQUATE); POLYCHROMASIA PRESENT
[2016-12-15 11:38] LABS: ANISOCYTOSIS PRESENT; MICROCYTOSIS MOD; OVALOCYTES OCC
[2016-12-15 22:09] LABS: CREATININE PTH 2.61 mg/dL (0.57-1.00); PTH INTACT 100 pg/mL (15-65)
== END | disposition home or self-care (01) ==
LOC: LAB 09:37
PROVIDERS: ATTEND Internal Medicine Nephrology
DX: I12.9 Hypertensive chronic kidney disease with stage 1 through stage 4 chronic kidney disease, or unspecified chronic kidney disease (principal); N18.4 Chronic kidney disease, stage 4 (severe); E11.22 Type 2 diabetes mellitus with diabetic chronic kidney disease; E11.29 Type 2 diabetes mellitus with other diabetic kidney complication; R80.9 Proteinuria, unspecified
CPT/HCPCS: 36415; 80069; 83735; 83970; 85025

== ENCOUNTER → 2016-12-22 | Outpatient (CLI) | payer MEDICARE, BC ==
[2016-12-08 10:06] VITALS: BP 171/70
== END | disposition home or self-care (01) ==
LOC: LAB 09:33
PROVIDERS: ATTEND Internal Medicine Nephrology
DX: I12.9 Hypertensive chronic kidney disease with stage 1 through stage 4 chronic kidney disease, or unspecified chronic kidney disease (principal); N18.4 Chronic kidney disease, stage 4 (severe); E11.21 Type 2 diabetes mellitus with diabetic nephropathy; E11.22 Type 2 diabetes mellitus with diabetic chronic kidney disease; D63.1 Anemia in chronic kidney disease; N27.0 Small kidney, unilateral; D50.9 Iron deficiency anemia, unspecified; R80.1 Persistent proteinuria, unspecified; N25.81 Secondary hyperparathyroidism of renal origin
CPT/HCPCS: 82728; 83540; 83550

== ENCOUNTER → 2017-04-06 | Outpatient (CLI) | payer MEDICARE, BC ==
[2017-01-19 10:50] VITALS: BP 166/70
== END | disposition home or self-care (01) ==
LOC: LAB 09:36
PROVIDERS: ATTEND Internal Medicine Cardiovascular Disease
DX: E78.2 Mixed hyperlipidemia (principal)
CPT/HCPCS: 80061

== ENCOUNTER → 2017-04-11 | Outpatient (CLI) | payer MEDICARE, BC ==
[2017-01-19 10:50] VITALS: BP 166/70
[~2017-04-11] MED LIST changes: +WARF3TAB50 PO; -WARF3TAB7 PO
[2017-04-11 10:52] LABS: ALBUMIN 3.6 g/dL (3.4-5.0); CALCIUM 8.9 mg/dL (8.5-10.1); CREATININE 2.7 mg/dL (0.6-1.0); GFR 16.6; POTASSIUM 4.9 mmol/L (3.5-5.1)
== END | disposition home or self-care (01) ==
LOC: LAB 10:20
PROVIDERS: ATTEND Internal Medicine Nephrology
DX: I13.0 Hypertensive heart and chronic kidney disease with heart failure and stage 1 through stage 4 chronic kidney disease, or unspecified chronic kidney disease (principal); E11.22 Type 2 diabetes mellitus with diabetic chronic kidney disease; N18.4 Chronic kidney disease, stage 4 (severe); I50.33 Acute on chronic diastolic (congestive) heart failure; N17.9 Acute kidney failure, unspecified
CPT/HCPCS: 36415; 80069

== ENCOUNTER → 2017-04-19 | Outpatient (CLI) | payer MEDICARE, BC ==
[2017-01-19 10:50] VITALS: BP 166/70
[2017-04-19 20:22] LABS: TOTAL SERUM CREATININE 2.04 mg/dL (0.57-1.00); TOTAL URINE CREATININE 39.3 mg/dL (Not Estab.)
== END | disposition home or self-care (01) ==
LOC: LAB 11:11
PROVIDERS: ATTEND Internal Medicine Nephrology
DX: N18.4 Chronic kidney disease, stage 4 (severe) (principal)
CPT/HCPCS: 36415; 82575

== ENCOUNTER → 2017-05-04 | Outpatient (CLI) | payer MEDICARE, BC ==
[2017-01-19 10:50] VITALS: BP 166/70
[2017-05-04 10:07] LABS: HEMOGLOBIN 11.2 g/dL (12.0-15.5)
[2017-05-04 10:08] LABS: HEMATOCRIT 32.9 % (36.0-47.0)
[2017-05-04 10:28] LABS: ALBUMIN 3.8 g/dL (3.4-5.0); CALCIUM 9.3 mg/dL (8.5-10.1); CREATININE 2.9 mg/dL (0.6-1.0); GFR 15.3; POTASSIUM 4.6 mmol/L (3.5-5.1)
[2017-05-04 22:14] LABS: MICRO CREAT RATIO 120.9 mg/g creat (0.0-30.0); MICROALB RD UR 56.2 ug/mL (Not Estab.); UR CREATININE RD 46.9 mg/dL (Not Estab.)
[2017-05-05 13:07] LABS: CALCIUM PTH 9.5 mg/dL (8.7-10.3); PTH INTACT 111 pg/mL (15-65)
== END | disposition home or self-care (01) ==
LOC: LAB 09:33
PROVIDERS: ATTEND Internal Medicine Nephrology
DX: I12.9 Hypertensive chronic kidney disease with stage 1 through stage 4 chronic kidney disease, or unspecified chronic kidney disease (principal); E11.21 Type 2 diabetes mellitus with diabetic nephropathy; N18.4 Chronic kidney disease, stage 4 (severe); D63.1 Anemia in chronic kidney disease; N27.0 Small kidney, unilateral; D50.9 Iron deficiency anemia, unspecified; N25.81 Secondary hyperparathyroidism of renal origin; R80.1 Persistent proteinuria, unspecified
CPT/HCPCS: 36415; 80069; 82043; 82570; 82607; 82728; 83540; 83550; 83970; 84156; 85014; 85018

== ENCOUNTER → 2017-08-24 | Outpatient (CLI) | payer MEDICARE, BC ==
[2017-07-27 09:46] VITALS: BP 136/67
[~2017-08-24] MED LIST changes: -WARF2TAB7 PO; +WARF2TAB96 PO; +WARF4TAB64 PO; -WARF4TAB7 PO
[2017-08-24 11:03] LABS: CALCIUM 9.4 mg/dL (8.5-10.1); CREATININE 2.7 mg/dL (0.6-1.0); GFR 16.6
== END | disposition home or self-care (01) ==
LOC: LAB 10:31
PROVIDERS: ATTEND Internal Medicine Nephrology
DX: I12.9 Hypertensive chronic kidney disease with stage 1 through stage 4 chronic kidney disease, or unspecified chronic kidney disease (principal); E11.22 Type 2 diabetes mellitus with diabetic chronic kidney disease; N18.4 Chronic kidney disease, stage 4 (severe); N27.0 Small kidney, unilateral; D63.1 Anemia in chronic kidney disease
CPT/HCPCS: 36415; 80048

== ENCOUNTER → 2018-03-08 | Outpatient (CLI) | payer MEDICARE, BC ==
[2018-02-08 09:53] VITALS: BP 150/74
[~2018-03-08] MED LIST changes: -AMLO10TA2 PO; +AMLO10TA6 PO; -AMLO5TAB2 PO; +AMLO5TAB7 PO; -CARV12.52 PO; +CARV12.547 PO; -CARV3.122 PO; +CARV3.1230 PO; -CHLO25TA PO; +CHLO25TA9 PO; -HYDR-2762 PO; +HYDR-2765 PO; -IPRA3AMP IH; +IPRA3AMP29 IH; +LOSA100T14 PO; -LOSA100T6 PO; -LOSA50TA6; +LOSA50TA86
[2018-03-08 10:24] LABS: HEMATOCRIT 37.9 % (36.0-47.0); HEMOGLOBIN 12.5 g/dL (12.0-15.5)
[2018-03-08 10:37] LABS: ALBUMIN 3.8 g/dL (3.4-5.0); CALCIUM 9.4 mg/dL (8.5-10.1); GFR 14.7; PHOSPHORUS 3.8 mg/dL (2.6-4.7); POTASSIUM 4.4 mmol/L (3.5-5.1)
== END | disposition home or self-care (01) ==
LOC: LAB 09:58
PROVIDERS: ATTEND Internal Medicine Nephrology
DX: I12.9 Hypertensive chronic kidney disease with stage 1 through stage 4 chronic kidney disease, or unspecified chronic kidney disease (principal); E11.22 Type 2 diabetes mellitus with diabetic chronic kidney disease; N18.4 Chronic kidney disease, stage 4 (severe)
CPT/HCPCS: 36415; 80069; 85014; 85018

== ENCOUNTER 2018-06-26 10:48 | Inpatient (IN) | payer MEDICARE, BC ==
[~2018-06-26] VITALS: Ht 154.9 cm; Wt 60.9 kg
[~2018-06-26 10:48] MED LIST changes: -AMLO10TA6 PO; +AMLO10TA8 PO; +AMLO5TAB10 PO; -AMLO5TAB7 PO
[2018-06-26 12:39] VITALS: BP 123/65
[2018-06-26] MEDS ORDERED: MAGN400T3 PO (13:37)
[2018-06-26] MEDS ORDERED: AMLO5TAB10 PO (13:37)
[2018-06-26] MEDS ORDERED: GABA-585 PO (13:37)
[2018-06-26] MEDS ORDERED: CARV25TA2 PO (13:37)
[2018-06-26] MEDS ORDERED: CHOL10003 PO (13:37)
[2018-06-26 13:48] LABS: BASO % 0 % (0-3); EOS % 1 % (0-3); HEMATOCRIT 30.5 % (36.0-47.0); HEMOGLOBIN 10.2 g/dL (12.0-15.5); LYMPH # 0.9 x10^3/uL (1.0-4.8); LYMPH % 23 % (24-48); MEAN CORPUSCULAR HEMOGLOBIN 30 pg (25-35); MEAN CORPUSCULAR HGB CONC 33 g/dL (31-37); MEAN CORPUSCULAR VOLUME 89 fL (79-100); MONO # 0.3 x10^3/uL (0.0-1.1); MONO % 7 % (0-9); NEUT # 2.6 x10^3uL (1.8-7.7); NEUT % 68 % (31-73); PLATELET COUNT 148 x10^3/uL (140-400); RED BLOOD COUNT 3.44 x10^6/uL (3.50-5.40); WHITE BLOOD COUNT 3.9 x10^3/uL (4.0-11.0)
[2018-06-26 13:55] LABS: ALBUMIN 3.5 g/dL (3.4-5.0); ALBUMIN/GLOBULIN RATIO 0.9 (1.0-1.7); CALCIUM 8.5 mg/dL (8.5-10.1); CREATININE 4.5 mg/dL (0.6-1.0); GFR 9.2; POTASSIUM 4.4 mmol/L (3.5-5.1); TOTAL BILIRUBIN 0.4 mg/dL (0.2-1.0); TOTAL PROTEIN 7.5 g/dL (6.4-8.2)
[2018-06-26] MEDS ORDERED: INSU100I7 SQ (14:04)
[2018-06-26 14:43] LABS: BILIRUBIN,URINE NEG (NEG); CLARITY,URINE CLOUDY; COLOR,URINE YELLOW; GLUCOSE,URINE NEG (NEG)
[2018-06-26 14:44] LABS: BACTERIA,URINE MANY /HPF (0-FEW); NITRITE,URINE NEG (NEG); SQUAMOUS EPITHELIAL CELL,UR FEW /LPF; UROBILINOGEN,URINE 0.2 mg/dL (0.2 mg/dL); WBC,URINE TNTC /HPF (0-4)
[2018-06-26] MEDS ORDERED: DOCUSATE SODIUM 100 MG CAPSULE PO PRN (14:45)
[2018-06-26] MEDS ORDERED: FUROSEMIDE 40 MG/4 ML VIAL IVP SCH (14:45)
[2018-06-26 15:06] VITALS: BP 124/66
[2018-06-26] MEDS: METOCLOPRAMIDE 5 MG TABLET PO SCH (16:59)
[2018-06-26] MEDS: INSULIN LISPRO 300 UNITS/3 ML INSULN.PEN. SQ SCH (17:00)
[2018-06-26] MEDS: CARVEDILOL 12.5 MG TABLET PO SCH (17:00)
--- NOTE | 2018-06-26 17:07 | RAD ---
Renal ultrasound HISTORY: Renal failure FINDINGS: Right kidney measures 8.5 cm diameter with evidence of cortical atrophy. No evidence of hydronephrosis. Poor visualization of the left kidney due to bowel gas. Left kidney measures approximately 10.3 cm longitudinal. Urinary bladder is visualized. Right and left ureteric jets cannot be documented. The spleen is incidentally noted to be enlarged, 16.6 cm. IMPRESSION: 1. Renal cortical atrophy on the right without hydronephrosis. 2. Poorly visualized left kidney due to bowel gas. 3. Splenomegaly. 4. Ureteric jets cannot be visualized. Electronically signed by: Arash Nelson MD (06/26/2018 5:04 PM) [id number]
--- NOTE | 2018-06-26 17:20 | RAD ---
PORTABLE CHEST 1V History: SHORT OF AIR Comparison: November 08, 2016 Findings: Single view of the chest is submitted. There again has been a median sternotomy. There is again dual lead left electronic cardiac device. There is atherosclerotic calcification thoracic aorta greater near arch. There is no lobar consolidation, pleural fluid, pneumothorax. Interstitial opacity with basilar predominance is stable to decreased. Impression: 1. There is no significant infiltrate or pleural fluid. Electronically signed by: Milad Chavez MD (06/26/2018 5:17 PM) [facility]
[2018-06-26 19:43] VITALS: BP 116/64
[2018-06-26] MEDS: GABAPENTIN 100 MG CAPSULE. PO SCH (22:05)
[2018-06-26] MEDS: hydrALAZINE 25 MG TABLET PO SCH (22:05)
[2018-06-26] MEDS: INSULIN GLARGINE 300 UNITS/3 ML INSULN.PEN. SQ SCH (22:09)
[2018-06-26 22:59] VITALS: BP 125/64
[2018-06-27 05:40] VITALS: BP 126/61
[2018-06-27 06:57] LABS: ALBUMIN 3.3 g/dL (3.4-5.0); ALBUMIN/GLOBULIN RATIO 0.8 (1.0-1.7); CREATININE 3.8 mg/dL (0.6-1.0); GFR 11.2; POTASSIUM 4.5 mmol/L (3.5-5.1); TOTAL BILIRUBIN 0.3 mg/dL (0.2-1.0); TOTAL PROTEIN 7.4 g/dL (6.4-8.2)
[2018-06-27] MEDS: INSULIN LISPRO 300 UNITS/3 ML INSULN.PEN. SQ SCH ×3 (08:00→17:09)
[2018-06-27] MEDS: MAGNESIUM OXIDE 400 MG TABLET PO SCH (08:09)
[2018-06-27] MEDS: PANTOPRAZOLE 40 MG TABLET. PO SCH (08:10)
[2018-06-27] MEDS: hydrALAZINE 25 MG TABLET PO SCH ×3 (08:10→20:59)
[2018-06-27] MEDS: ASPIRIN 81 MG TAB.CHEW PO SCH (08:10)
[2018-06-27] MEDS: GABAPENTIN 100 MG CAPSULE. PO SCH ×2 (08:10→21:00)
[2018-06-27] MEDS: METOCLOPRAMIDE 5 MG TABLET PO SCH ×3 (08:10→17:05)
[2018-06-27] MEDS: CARVEDILOL 12.5 MG TABLET PO SCH ×2 (08:10→17:05)
[2018-06-27] MEDS: INSULIN GLARGINE 300 UNITS/3 ML INSULN.PEN. SQ SCH ×2 (08:12→21:00)
[2018-06-27] MEDS ORDERED: IV 1/2 NORMAL SALINE 1,000 ML IV PRN (08:45)
[2018-06-27] MEDS: IV 1/2 NORMAL SALINE 1,000 ML IV SCH ×2 (09:16→17:06)
[2018-06-27 10:48] VITALS: BP 128/65
--- NOTE | 2018-06-27 12:27 | PN ---
DATE: 06/27/2018 SUBJECTIVE: An 88-year-old female in with acute renal stasis. The patient is doing somewhat better this morning. She is still having abdominal distention, but not so much abdominal pain. The patient otherwise had a renal ultrasound did show some atrophy without hydronephrosis. She has a lot of gas there and otherwise seems to be pretty good on that ultrasound. Otherwise, the patient's creatinine yesterday was 12.5 with BUN of 84; however, this morning, she is down 80 and 3.8. She refuses dialysis. She has had renal problems in the past. Her sugars 231. Her albumin is 3.3. PHYSICAL EXAMINATION: VITAL SIGNS: 126/60, respiratory rate 22, pulse 78, low grade temperature of 99.2. The patient's chest x-ray was basically unremarkable and the patient's labs did show some large leukocyte esterase. She was placed on some IV antibiotic therapy and continued to be monitored. LUNGS: Diminished, but clear. CARDIOVASCULAR: Regular with about a 3-4/6 systolic ejection murmur. ABDOMEN: Soft, nontender and distended. EXTREMITIES: No clubbing, cyanosis, edema, some ecchymosis. PLAN: Otherwise, the patient continued to be monitored carefully, make further evaluation on her. Continue with IV antibiotic therapy, fluids for gentle hydration and recheck that situation with her acute on top of chronic renal stasis with tubular necrosis. AN CARREON MD DR: ANA/luis JOB#: [id number] / [id number]
[2018-06-27 15:01] VITALS: BP 147/65
--- NOTE | 2018-06-27 15:55 | RAD ---
Upright and supine views of the abdomen without comparison for abdominal pain and bloating. FINDINGS: Median sternotomy wires are seen. Dual lead pacemaker is present. There is scattered abdominal bowel gas in a nonobstructive pattern. No free air is seen. Dense calcification in the splenic artery is noted. Left renal artery stents are seen. Surgical changes are seen throughout the pelvis. There is a right hip prosthesis. Aortoiliac atherosclerosis is noted. IMPRESSION: 1. Nonobstructive nonspecific bowel gas pattern. 2. 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 Electronically signed by: Feliberto Beltre MD (06/27/2018 3:52 PM) [facility]
[2018-06-27] MEDS ORDERED: PROMETH/CODEINE 6.25/10MG 5 ML SYRUP. PO PRN (17:00)
[2018-06-27 19:15] VITALS: BP 137/72
[2018-06-27] MEDS ORDERED: NITROGLYCERIN SUBLINGUAL 0.4 MG BOTTLE OF 25. SL PRN (19:30)
[2018-06-27] MEDS: LACTOBACILLUS RHAMNOSUS GG 1 CAPSULE. PO SCH (21:00)
[2018-06-27] MEDS: BENZONATATE 100 MG CAPSULE. PO SCH (21:00)
--- NOTE | 2018-06-27 21:16 | RAD ---
CHEST PA LATERAL Technique: PA and lateral views of the chest were obtained. Clinical History: Chest pain, short of air Comparison: June 26, 2018. Findings: The heart is normal size. The pulmonary vessels appear normal. There is increased reticular opacities of lungs and blunting of costophrenic angles. Left-sided pacemaker and median sternotomy wires are again seen. The lungs are hyperinflated. Impression: Mild interstitial edema and mild bilateral pleural effusions consistent with CHF. This was not seen previously. Electronically signed by: Mckay Martin III, MD (06/27/2018 9:12 PM) [facility]
[2018-06-27 23:09] VITALS: BP 159/78
[2018-06-28] MEDS: IV 1/2 NORMAL SALINE 1,000 ML IV SCH ×2 (01:15→09:02)
[2018-06-28] MEDS ORDERED: FUROSEMIDE 40 MG/4 ML VIAL IVP ONE ×2 (02:30→09:45)
[2018-06-28 04:07] LABS: TOTAL SERUM CREATININE 3.56 mg/dL (0.57-1.00); TOTAL URINE CREATININE 66.6 mg/dL (Not Estab.)
[2018-06-28 05:42] VITALS: BP 142/63
[2018-06-28 07:46] LABS: BASO % 0 % (0-3); EOS % 0 % (0-3); HEMATOCRIT 30.5 % (36.0-47.0); HEMOGLOBIN 10.2 g/dL (12.0-15.5); LYMPH # 0.9 x10^3/uL (1.0-4.8); LYMPH % 12 % (24-48); MEAN CORPUSCULAR HEMOGLOBIN 29 pg (25-35); MEAN CORPUSCULAR HGB CONC 33 g/dL (31-37); MEAN CORPUSCULAR VOLUME 88 fL (79-100); MONO # 0.8 x10^3/uL (0.0-1.1); MONO % 10 % (0-9); NEUT # 6.1 x10^3uL (1.8-7.7); NEUT % 78 % (31-73); PLATELET COUNT 151 x10^3/uL (140-400); RED BLOOD COUNT 3.47 x10^6/uL (3.50-5.40); RED CELL DISTRIBUTION WIDTH 15.3 % (11.5-14.5); WHITE BLOOD COUNT 7.8 x10^3/uL (4.0-11.0)
[2018-06-28 07:53] LABS: CREATININE 3.1 mg/dL (0.6-1.0); GFR 14.1; POTASSIUM 4.8 mmol/L (3.5-5.1)
[2018-06-28 08:46] LABS: % BANDS 5 % (0-9); % BASOS 0 % (0-3); % EOS 0 % (0-5); % LYMPHS 11 % (24-48); % MONOS 5 % (0-10); % SEGS 79 % (35-66); PLT ESTIMATE ADEQUATE (ADEQUATE)
[2018-06-28] MEDS: hydrALAZINE 25 MG TABLET PO SCH (08:47)
[2018-06-28] MEDS: LACTOBACILLUS RHAMNOSUS GG 1 CAPSULE. PO SCH (08:47)
[2018-06-28] MEDS: ASPIRIN 81 MG TAB.CHEW PO SCH (08:47)
[2018-06-28] MEDS: MAGNESIUM OXIDE 400 MG TABLET PO SCH (08:48)
[2018-06-28] MEDS: PANTOPRAZOLE 40 MG TABLET. PO SCH (08:48)
[2018-06-28] MEDS: METOCLOPRAMIDE 5 MG TABLET PO SCH ×2 (08:49→11:30)
[2018-06-28] MEDS: CARVEDILOL 12.5 MG TABLET PO SCH (08:49)
[2018-06-28] MEDS: INSULIN LISPRO 300 UNITS/3 ML INSULN.PEN. SQ SCH ×2 (08:58→12:00)
[2018-06-28] MEDS: BENZONATATE 100 MG CAPSULE. PO SCH (09:00)
[2018-06-28] MEDS: INSULIN GLARGINE 300 UNITS/3 ML INSULN.PEN. SQ SCH (09:00)
[2018-06-28] MEDS: GABAPENTIN 100 MG CAPSULE. PO SCH (09:01)
[2018-06-28] MEDS ORDERED: MORPHINE SULFATE 4 MG/ML DISP.SYRIN. IV PRN (10:00)
[2018-06-28] MEDS ORDERED: NITROGLYCERIN 0.2MG/HR PATCH. TD SCH (10:15)
--- NOTE | 2018-06-28 11:11 | EKG ---
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 NONSPECIFIC ST-T WAVE CHANGES. Electronically Signed On 07-05-2018 11:38:36 CDT by Pavel Alegre
--- NOTE | 2018-06-28 11:12 | EKG ---
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
[2018-06-28 11:23] VITALS: BP 116/54
--- NOTE | 2018-06-28 11:36 | DS ---
DATE OF DISCHARGE: 06/28/2018 HOSPITAL COURSE: The patient is an 88-year-old female came in with increased shortness of breath as well as decreased renal function. The patient had to sleep on more and more pillows. The patient was also noted to have a creatinine of 4.5 with an estimated GFR of only 9. She refused dialysis. 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 The patient was admitted for evaluation and we consulted Cardiology, but due to other situations they were unable to see her. As a result of this, the patient was transferred down to . The patient also began to have some intermittent chest discomfort. Cardiac enzymes were slightly elevated 0.06-0.07. Her BNP went up from 11 roughly to 26,000. She was given additional IV Lasix. Her creatinine came down to 3.1, BUN of 76. Sodium/potassium 136/4.8. The white count was 7.8, hemoglobin 10 and 30. Her vital signs indicated slight temperature of 99.1, blood pressure 142/63, respiratory rate 24, pulse 70-80. She is on 4 liters per nasal cannula. The patient was placed on Lasix, Nitropatch, given additional morphine for breathing. She did have some difficulty in breathing, using some accessory muscles, but with diuresis she improved there. The patient's weight actually had gone up approximately 129-134, but she seems to be diuresing better with the additional IV Lasix. 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 Bautista. IMPRESSION: Acute on top of chronic diastolic heart failure, acute on chronic renal failure, elevated troponins, chest pain, possible angina. The patient was placed on heparin just for DVT prophylaxis, Levaquin since she was running a temperature and it appeared that her urine did have large leukocyte esterase as those were elevated. 24-hour creatinine clearance showed creatinine clearance of 14, which again she refuses dialysis. In any case, the patient was transferred down to [facility] for further evaluation and treatment of her multiple medical problems and lack of specialty care at this facility. AN CARREON MD DR: ANA/luis JOB#: [id number] / [id number]
[2018-06-28] MEDS ORDERED: HEPARIN for SUB-Q USE 5,000 UNIT/ML VIAL. SQ SCH (14:00)
== END 2018-06-28 12:25 | disposition short-term general hospital (02) | DRG 682 ==
LOC: 1 SOUTH 12:24
PROVIDERS: ADMIT Family Medicine; ATTEND Family Medicine
DX: N17.0 Acute kidney failure with tubular necrosis (principal); I50.33 Acute on chronic diastolic (congestive) heart failure; N18.9 Chronic kidney disease, unspecified; I20.9 Angina pectoris, unspecified; Z91.15 Patient's noncompliance with renal dialysis
CPT/HCPCS: 36415; 71045; 71046; 74021; 76770; 80048; 80053; 81001; 82550; 82575; 82947; 83036; 83605; 83880; 84484; 85007; 85025; 85610; 87086; 87186; 93005; J0696; J1815; J1940; J1956; J2270; J7030; J8597

== ENCOUNTER 2018-09-15 21:19 | Inpatient (IN) | payer MEDICARE, BC ==
[~2018-09-15] VITALS: Ht 154.9 cm; Wt 60.8 kg
[~2018-09-15 21:19] MED LIST changes: +CHOL10003 PO; +GABA-585 PO; +MAGN400T3 PO
--- NOTE | 2018-09-15 21:30 | ED.ADGEN ---
Past History Past Medical History: A-Fib, CAD, CHF, Diabetes, GERD, Heart Disease, Hypertension, Renal Disease, Other Past Surgical History: Appendectomy, Cholecystectomy, Coronary Bypass Surgery, Hysterectomy, Other Smoking: Non-smoker Alcohol Use: None Drug Use: None Adult General Chief Complaint Chief Complaint ..." Well see ... I got this bad heart... and got bad kidneys... but last week or so... my legs are swelling so.. much more... " .." I think.. I ve gotten an urinary tract infection.. because it mcneil when I go to bathroom... and sir.. I don't want to be transfer to ... or any where.. If I ve got to be admitted.... I want to be admitted here.. look.. I got a DNR... I don't want any shocks.. any intubation... or those machines to breath for me... I don't want no surgeries.... I definitely don't no dialysis.... Ask my daughters... they know I got a signed DNR... " .." You can give me meds.. but that all I want done..." HPI HPI Patient is a 88 year old female who presents with above hx and complaints of increase leg edema and shortness of breath. Pt. not normally on oxygen. Pt. and daughters advised that her leg edema is worse the last couple days. Pt. has known diastolic heart failure, chronic renal failure, chronic elevated troponins. Pt. Resident of [facility] in [facility]. Pt. follows with Dr. Collins and Dr. Bautista at . Pt. currently insisting no transfer. Review of Systems Review of Systems Constitutional: Denies fever or chills [] Eyes: Denies change in visual acuity, redness, or eye pain [] HENT: Denies nasal congestion or sore throat [] Respiratory: complaints of shortness of breath [] Cardiovascular: No additional information not addressed in HPI [] GI: Denies abdominal pain, nausea, vomiting, bloody stools or diarrhea [] : complaints of dysuria Musculoskeletal: Denies back pain or joint pain []Complaints of generalized w eakness. Increased leg edema. Integument: Denies rash or skin lesions [] Neurologic: Denies headache, focal weakness or sensory changes [] Endocrine: Denies polyuria or polydipsia [] All other systems were reviewed and found to be within normal limits, except as documented in this note. Family History Family History Non-contributory Current Medications Current Medications Current Medications Medications (Trade) Dose Ordered Sig/Devon Start Time Stop Time Status Last Admin Dose Admin Ceftriaxone Sodium 1 gm/ Sodium Chloride 50 ml @ 100 mls/hr 1X ONCE 09/15/18 22:45 09/15/18 23:14 DC 09/15/18 23:56 100 MLS/HR Furosemide (Lasix) 40 mg 1X ONCE 09/15/18 23:00 09/15/18 23:01 DC 09/15/18 23:55 40 MG Heparin Sodium (Porcine) (Heparin Sodium) 5,000 unit 1X ONCE 09/15/18 23:00 7 23:00 DC Heparin Sodium (Porcine) (Heparin Sq) 5,000 unit 1X ONCE 09/15/18 23:00 09/15/18 23:01 DC 09/15/18 23:57 5,000 UNIT See Nursing for home meds. Allergies Allergies Allergies Coded Allergies Type Severity Reaction Last Updated Verified exenatide Allergy Intermediate Nausea and Vomiting 04/19/16 Yes oxycodone Allergy Intermediate Nausea and Vomiting 11/27/14 Yes pregabalin Allergy Intermediate Rash 04/19/16 Yes Physical Exam Physical Exam Constitutional: moderate acute distress, non-toxic appearance. [] HENT: Normocephalic, atraumatic, bilateral external ears normal, oropharynx moist, no oral exudates, nose normal. [] Eyes: PERRLA, EOMI, conjunctiva normal, no discharge. [] Neck: Normal range of motion, no tenderness, supple, no stridor. [] Cardiovascular: irregular rate and rhythm, aortic murmur []PMI to Lt. Lungs & Thorax: Bilateral breath sounds bibasilar crackles on auscultation [] Abdomen: Bowel sounds normal, soft, no tenderness, no masses, no pulsatile masses. [] Skin: Warm, dry, no erythema, no rash. Poor turgor. Back: No tenderness, no CVA tenderness. [] Extremities: bilateral leg tenderness, no cyanosis, no clubbing, ROM intact, 3+ edema to level of knees . Arthritic changes. Old leg scars. Neurologic: Alert and oriented X 3, normal motor function, normal sensory function, no focal deficits noted. [] Psychologic: Affect anxious, judgement normal, mood normal. [] Current Patient Data Vital Signs Vital Signs Date Time Temp Pulse Resp B/P (MAP) Pulse Ox O2 Delivery O2 Flow Rate FiO2 09/15/18 22:00 14 89 Room Air 09/15/18 21:47 98.6 70 Lab Results Laboratory Tests Test 09/15/18 21:45 White Blood Count 3.8 x10^3/uL (4.0-11.0) L Red Blood Count 3.37 x10^6/uL (3.50-5.40) L Hemoglobin 9.9 g/dL (12.0-15.5) L Hematocrit 31.3 % (36.0-47.0) L Mean Corpuscular Volume 93 fL (79-100) Mean Corpuscular Hemoglobin 29 pg (25-35) Mean Corpuscular Hemoglobin Concent 32 g/dL (31-37) Red Cell Distribution Width 16.9 % (11.5-14.5) H Platelet Count 124 x10^3/uL (140-400) L Neutrophils (%) (Auto) 63 % (31-73) Lymphocytes (%) (Auto) 27 % (24-48) Monocytes (%) (Auto) 8 % (0-9) Eosinophils (%) (Auto) 1 % (0-3) Basophils (%) (Auto) 1 % (0-3) Neutrophils # (Auto) 2.4 x10^3uL (1.8-7.7) Lymphocytes # (Auto) 1.0 x10^3/uL (1.0-4.8) Monocytes # (Auto) 0.3 x10^3/uL (0.0-1.1) Eosinophils # (Auto) 0.0 x10^3/uL (0.0-0.7) Basophils # (Auto) 0.0 x10^3/uL (0.0-0.2) Prothrombin Time 12.3 SEC (9.4-11.4) H Prothrombin Time INR 1.2 (0.9-1.1) H PTT 28 SEC (23-33) D-Dimer (Parris) 1.99 mg/L (0.00-0.50) H Urine Collection Type Unknown Urine Color Yellow Urine Clarity Turbid Urine pH 5.5 Urine Specific [place] >=1.030 Urine Protein 100 mg/dl (NEG-TRACE) Urine Glucose (UA) Neg mg/dL (NEG) Urine Ketones (Stick) Neg mg/dL (NEG) Urine Blood Mod (NEG) Urine Nitrite Neg (NEG) Urine Bilirubin Neg (NEG) Urine Urobilinogen Dipstick 0.2 mg/dL (0.2 mg/dL) Urine Leukocyte Esterase Large (NEG) Urine RBC 0 /HPF (0-2) Urine WBC >40 /HPF (0-4) Urine Squamous Epithelial Cells Occ /LPF Urine Bacteria Many /HPF (0-FEW) Sodium Level 143 mmol/L (136-145) Potassium Level 4.0 mmol/L (3.5-5.1) Chloride Level 108 mmol/L (98-107) H Carbon Dioxide Level 19 mmol/L (21-32) L Anion Gap 16 (6-14) H Blood Urea Nitrogen 81 mg/dL (7-20) H Creatinine 5.0 mg/dL (0.6-1.0) H Estimated GFR (Cockcroft-Gault) 8.1 Glucose Level 197 mg/dL (70-99) H Calcium Level 8.6 mg/dL (8.5-10.1) Magnesium Level 3.1 mg/dL (1.8-2.4) H Total Bilirubin 0.3 mg/dL (0.2-1.0) Direct Bilirubin 0.1 mg/dL (0.0-0.2) Aspartate Amino Transferase (AST) 16 U/L (15-37) Alanine Aminotransferase (ALT) 11 U/L (14-59) L Alkaline Phosphatase 59 U/L (46-116) Creatine Kinase 44 U/L (26-192) Troponin I Quantitative 0.034 ng/mL (0-0.055) VN-Sgu-O-Type Natriuretic Peptide 58990 pg/mL (0-449) H Total Protein 6.9 g/dL (6.4-8.2) Albumin 3.4 g/dL (3.4-5.0) Lipase 79 U/L (73-393) EKG EKG My interpretation EKG shows a irregular rhythm at 70 bpm. No obvious P-wave. Some nonspecific T-wave changes in anterior leads.[] Radiology/Procedures Radiology/Procedures Interpretation chest x-ray shows patchy infiltrates and increased cephalization. Cardiomegaly. Basilar atelectasis and pleural effusions. Does have pacer. Degenerative joint changes.[] US pending at time of admission. Course & Med Decision Making Course & Med Decision Making Pertinent Labs and Imaging studies reviewed. (See chart for details) Revisit patient in transfer to with her and daughters. Patient still insistent on admission here. Patient wishes to continue DNR status no intubation, no shocks, no dialysis no surgeries.. Discussed with Dr. Collins. Will admit here tonight. [] Final Impression Final Impression 1. Dyspnea-Hypoxia on Room air 2. Leg Edema 3. Afib with acceptable Vent. rate 4. Acute on Chronic diastolic heart failure[] BNP 17, 941 5. UTI 6. Acute on Chronic Renal Failure- Bun 81/5.0 Creat. 7. Elevated D-dimer 1.99 8. Anemia 9.9, Thrombocytopenia 124. Dragon Disclaimer Dragon Disclaimer This electronic medical record was generated, in whole or in part, using a voice recognition dictation system. Discharge Summary Brief Hospital Course Allergies Allergies Coded Allergies Type Severity Reaction Last Updated Verified exenatide Allergy Intermediate Nausea and Vomiting 04/19/16 Yes oxycodone Allergy Intermediate Nausea and Vomiting 11/27/14 Yes pregabalin Allergy Intermediate Rash 04/19/16 Yes Vital Signs Vital Signs Date Time Temp Pulse Resp B/P (MAP) Pulse Ox O2 Delivery O2 Flow Rate FiO2 09/15/18 22:00 14 89 Room Air 09/15/18 21:47 98.6 70 Lab Results Laboratory Tests Test 09/15/18 21:45 White Blood Count 3.8 x10^3/uL (4.0-11.0) Red Blood Count 3.37 x10^6/uL (3.50-5.40) Hemoglobin 9.9 g/dL (12.0-15.5) Hematocrit 31.3 % (36.0-47.0) Mean Corpuscular Volume 93 fL (79-100) Mean Corpuscular Hemoglobin 29 pg (25-35) Mean Corpuscular Hemoglobin Concent 32 g/dL (31-37) Red Cell Distribution Width 16.9 % (11.5-14.5) Platelet Count 124 x10^3/uL (140-400) Neutrophils (%) (Auto) 63 % (31-73) Lymphocytes (%) (Auto) 27 % (24-48) Monocytes (%) (Auto) 8 % (0-9) Eosinophils (%) (Auto) 1 % (0-3) Basophils (%) (Auto) 1 % (0-3) Neutrophils # (Auto) 2.4 x10^3uL (1.8-7.7) Lymphocytes # (Auto) 1.0 x10^3/uL (1.0-4.8) Monocytes # (Auto) 0.3 x10^3/uL (0.0-1.1) Eosinophils # (Auto) 0.0 x10^3/uL (0.0-0.7) Basophils # (Auto) 0.0 x10^3/uL (0.0-0.2) Prothrombin Time 12.3 SEC (9.4-11.4) Prothromb Time International Ratio 1.2 (0.9-1.1) Activated Partial Thromboplast Time 28 SEC (23-33) D-Dimer (Parris) 1.99 mg/L (0.00-0.50) Urine Collection Type Unknown Urine Color Yellow Urine Clarity Turbid Urine pH 5.5 Urine Specific [place] >=1.030 Urine Protein 100 mg/dl (NEG-TRACE) Urine Glucose (UA) Neg mg/dL (NEG) Urine Ketones (Stick) Neg mg/dL (NEG) Urine Blood Mod (NEG) Urine Nitrite Neg (NEG) Urine Bilirubin Neg (NEG) Urine Urobilinogen Dipstick 0.2 mg/dL (0.2 mg/dL) Urine Leukocyte Esterase Large (NEG) Urine RBC 0 /HPF (0-2) Urine WBC >40 /HPF (0-4) Urine Squamous Epithelial Cells Occ /LPF Urine Bacteria Many /HPF (0-FEW) Sodium Level 143 mmol/L (136-145) Potassium Level 4.0 mmol/L (3.5-5.1) Chloride Level 108 mmol/L (98-107) Carbon Dioxide Level 19 mmol/L (21-32) Anion Gap 16 (6-14) Blood Urea Nitrogen 81 mg/dL (7-20) Creatinine 5.0 mg/dL (0.6-1.0) Estimated GFR (Cockcroft-Gault) 8.1 Glucose Level 197 mg/dL (70-99) Calcium Level 8.6 mg/dL (8.5-10.1) Magnesium Level 3.1 mg/dL (1.8-2.4) Total Bilirubin 0.3 mg/dL (0.2-1.0) Direct Bilirubin 0.1 mg/dL (0.0-0.2) Aspartate Amino Transf (AST/SGOT) 16 U/L (15-37) Alanine Aminotransferase (ALT/SGPT) 11 U/L (14-59) Alkaline Phosphatase 59 U/L (46-116) Creatine Kinase 44 U/L (26-192) Troponin I Quantitative 0.034 ng/mL (0-0.055) AR-Uwm-Z-Type Natriuretic Peptide 76216 pg/mL (0-449) Total Protein 6.9 g/dL (6.4-8.2) Albumin 3.4 g/dL (3.4-5.0) Lipase 79 U/L (73-393) Brief Hospital Course Ms. Monte is a 88 old female who presented with Acute on Chronic diastolic heart and renal failure. Admitted to Dr. Collins. Discharge Information Condition at Discharge: Improved Dischare Medications Current Medications Heparin Sodium (Porcine) (Heparin Sodium) 5,000 unit 1X ONCE SQ ; Start 09/15/18 at 23:00; Stop 09/15/18 at 23:00; Status DC Ceftriaxone Sodium 1 gm/ Sodium Chloride 50 ml @ 100 mls/hr 1X ONCE IV Last administered on 09/15/18at 23:56; Admin Dose 100 MLS/HR; Start 09/15/18 at 22:45; Stop 09/15/18 at 23:14; Status DC Furosemide (Lasix) 40 mg 1X ONCE IVP Last administered on 09/15/18at 23:55; Admin Dose 40 MG; Start 09/15/18 at 23:00; Stop 09/15/18 at 23:01; Status DC Heparin Sodium (Porcine) (Heparin Sq) 5,000 unit 1X ONCE SQ Last administered on 09/15/18at 23:57; Admin Dose 5,000 UNIT; Start 09/15/18 at 23:00; Stop 09/15/18 at 23:01; Status DC Active Scripts Active Reported Humalog Mix 75-25 Kwikpen (Insulin Npl/Insulin Lispro) 100 Unit/1 Ml Insuln.pen 2-10 Unit SQ TIDAC SLIDING SCALE Amlodipine Besylate 5 Mg Tablet 1 Tab PO DAILY Gabapentin (Gabapentin) 100 Mg Capsule 100 Mg PO BID Carvedilol 25 Mg Tablet 25 Mg PO BIDWMEALS Vitamin D3 (Cholecalciferol (Vitamin D3)) 1,000 Unit Tablet 1 Tab PO DAILY Magnesium Oxide 400 Mg Tablet 1 Tab PO DAILY Aspirin 81 Mg Tab.chew 81 Mg PO DAILY Atorvastatin Calcium 10 Mg Tablet 10 Mg PO QHS Metolazone 10 Mg Tablet 10 Mg PO DAILY Furosemide 40 Mg Tablet 40 Mg PO BID92 Reglan (Metoclopramide Hcl) 10 Mg Tablet 5 Mg PO TIDAC Ondansetron Odt (Ondansetron) 4 Mg Tab.rapdis 8 Mg PO PRN Q12HR PRN Colace (Docusate Sodium) 100 Mg Capsule 100 Mg PO PRN DAILY PRN Levemir Flexpen (Insulin Detemir) 100 Unit/1 Ml Insuln.pen 12 Unit SQ BID Omeprazole 40 Mg Capsule.dr 40 Mg PO BID Losartan Potassium 100 Mg Tablet 100 Mg PO DAILY Franciaon Disclaimer This chart was dictated in whole or in part using Voice Recognition software in a busy, high-work load, and often noisy Emergency Department environment. It may contain unintended and wholly unrecognized errors or omissions. SLADE ARIAS MD Sep 15, 2018 21:30
[2018-09-15 22:09] LABS: BASO % 1 % (0-3); EOS % 1 % (0-3); HEMATOCRIT 31.3 % (36.0-47.0); HEMOGLOBIN 9.9 g/dL (12.0-15.5); LYMPH % 27 % (24-48); MEAN CORPUSCULAR HEMOGLOBIN 29 pg (25-35); MEAN CORPUSCULAR HGB CONC 32 g/dL (31-37); MEAN CORPUSCULAR VOLUME 93 fL (79-100); MONO # 0.3 x10^3/uL (0.0-1.1); MONO % 8 % (0-9); NEUT # 2.4 x10^3uL (1.8-7.7); NEUT % 63 % (31-73); PLATELET COUNT 124 x10^3/uL (140-400); RED BLOOD COUNT 3.37 x10^6/uL (3.50-5.40); RED CELL DISTRIBUTION WIDTH 16.9 % (11.5-14.5); WHITE BLOOD COUNT 3.8 x10^3/uL (4.0-11.0)
[2018-09-15 22:20] LABS: BACTERIA,URINE MANY /HPF (0-FEW); BILIRUBIN,URINE NEG (NEG); CLARITY,URINE TURBID; COLOR,URINE YELLOW; GLUCOSE,URINE NEG (NEG); NITRITE,URINE NEG (NEG); RBC,URINE 0 /HPF (0-2); SQUAMOUS EPITHELIAL CELL,UR OCC /LPF; UROBILINOGEN,URINE 0.2 mg/dL (0.2 mg/dL); WBC,URINE >40 /HPF (0-4)
[2018-09-15 22:30] LABS: ALBUMIN 3.4 g/dL (3.4-5.0); CALCIUM 8.6 mg/dL (8.5-10.1); DIRECT BILIRUBIN 0.1 mg/dL (0.0-0.2); GFR 8.1; MAGNESIUM 3.1 mg/dL (1.8-2.4); TOTAL BILIRUBIN 0.3 mg/dL (0.2-1.0); TOTAL PROTEIN 6.9 g/dL (6.4-8.2)
[2018-09-15] MEDS ORDERED: HEPARIN for SUB-Q USE 5,000 UNIT/ML VIAL. SQ ONE (23:00)
[2018-09-15] MEDS ORDERED: FUROSEMIDE 40 MG/4 ML VIAL IVP ONE (23:00)
[2018-09-15] MEDS ORDERED: HEPARIN PF for SUB-Q USE 5,000 UNIT/0.5 ML VIAL. SQ ONE (23:00)
[2018-09-15] MEDS ORDERED: cefTRIAXone SODIUM 1 GM VIAL ONE (23:07)
[2018-09-15] MEDS ORDERED: IV NORMAL SALINE 50ML 50 ML ONE (23:07)
--- NOTE | 2018-09-15 23:17 | RAD ---
AP chest. HISTORY: Chest pain AP view was taken of the chest. The heart is enlarged. Left pacemaker is unchanged. There are bilateral pleural effusions. There is pulmonary vascular congestion. IMPRESSION: 1. Cardiomegaly, vascular congestion and pleural effusions suggests heart failure. Electronically signed by: Noé Borden MD (09/15/2018 11:14 PM) [facility]
[2018-09-15] MEDS ORDERED: ONDANSETRON PF 4 MG/2 ML VIAL. IV PRN (23:30)
--- NOTE | 2018-09-16 00:22 | RAD ---
INDICATION: Leg edema COMPARISON: None. TECHNIQUE: Grayscale, color and doppler ultrasound images were obtained of the bilateral lower extremity venous vasculature. RIGHT: No thrombus identified in the common femoral vein, femoral vein, popliteal vein or visualized calf veins. LEFT: No thrombus identified in the common femoral vein, femoral vein, popliteal vein or visualized calf veins. IMPRESSION: 1. No thrombus identified in deep venous system of bilateral lower extremities. 2. Edema of soft tissues. Electronically signed by: Nicolás Morales MD (09/16/2018 12:18 AM) [facility]
[2018-09-16] MEDS ORDERED: FURO80TA3 PO (01:58)
[2018-09-16] MEDS ORDERED: MAGN250T9 PO (02:03)
[2018-09-16] MEDS ORDERED: LOSA50TA14 PO (02:03)
[2018-09-16] MEDS: ACETAMINOPHEN 325 MG TABLET PO PRN ×3 (03:00→14:24)
[2018-09-16 06:14] VITALS: BP 108/57
[2018-09-16 06:27] LABS: BASO % 1 % (0-3); EOS # 0.1 x10^3/uL (0.0-0.7); EOS % 1 % (0-3); HEMATOCRIT 31.2 % (36.0-47.0); HEMOGLOBIN 9.9 g/dL (12.0-15.5); LYMPH # 1.2 x10^3/uL (1.0-4.8); LYMPH % 32 % (24-48); MEAN CORPUSCULAR HEMOGLOBIN 29 pg (25-35); MEAN CORPUSCULAR HGB CONC 32 g/dL (31-37); MEAN CORPUSCULAR VOLUME 92 fL (79-100); MONO # 0.3 x10^3/uL (0.0-1.1); MONO % 9 % (0-9); NEUT # 2.1 x10^3uL (1.8-7.7); NEUT % 57 % (31-73); PLATELET COUNT 127 x10^3/uL (140-400); RED BLOOD COUNT 3.38 x10^6/uL (3.50-5.40); RED CELL DISTRIBUTION WIDTH 16.5 % (11.5-14.5); WHITE BLOOD COUNT 3.6 x10^3/uL (4.0-11.0)
[2018-09-16 06:28] LABS: CALCIUM 8.6 mg/dL (8.5-10.1); CREATININE 4.8 mg/dL (0.6-1.0); GFR 8.5; POTASSIUM 3.6 mmol/L (3.5-5.1)
[2018-09-16] MEDS ORDERED: HYDROcodone/APAP 5/325MG 1 TAB TABLET PO PRN ×2 (08:15)
[2018-09-16] MEDS: FUROSEMIDE 40 MG/4 ML VIAL IVP SCH ×2 (08:36→21:30)
[2018-09-16] MEDS ORDERED: ONDANSETRON ODT 4 MG TAB.RAPDIS PO PRN (08:45)
[2018-09-16] MEDS ORDERED: DOCUSATE SODIUM 100 MG CAPSULE PO PRN (08:45)
[2018-09-16] MEDS: amLODIPine BESYLATE 10 MG TABLET PO SCH (09:00)
[2018-09-16] MEDS: LOSARTAN 50 MG TABLET. PO SCH (09:00)
[2018-09-16] MEDS ORDERED: HEPARIN for IV BOLUS 10,000 UNIT/10 ML VIAL. IV SCH (09:00)
[2018-09-16] MEDS: MAGNESIUM OXIDE 400 MG TABLET PO SCH (09:17)
[2018-09-16] MEDS: PANTOPRAZOLE 40 MG TABLET. PO SCH ×2 (09:17→20:03)
[2018-09-16] MEDS: INSULIN GLARGINE 300 UNITS/3 ML INSULN.PEN. SQ SCH ×2 (10:13→21:00)
[2018-09-16 11:42] VITALS: BP 112/62
[2018-09-16] MEDS: INSULIN LISPRO 300 UNITS/3 ML INSULN.PEN. SQ SCH ×2 (12:33→16:37)
[2018-09-16 13:34] LABS: THYROID STIM HORMONE (TSH) 5.842 uIU/mL (0.358-3.740)
[2018-09-16] MEDS: GABAPENTIN 100 MG CAPSULE. PO SCH ×2 (15:18→20:04)
[2018-09-16 15:27] VITALS: BP 107/60
[2018-09-16] MEDS ORDERED: DICLOFENAC SODIUM 1% TOPICAL GEL 100GM TUBE. TP PRN (15:30)
[2018-09-16] MEDS: CARVEDILOL 12.5 MG TABLET PO SCH (16:36)
--- NOTE | 2018-09-16 17:11 | HP ---
ADMIT DATE: 09/15/2018 HISTORY OF PRESENT ILLNESS: An 88-year-old female came in through the Emergency Room, brought in by her family members because of leg swelling and she got urinary tract infection, mcneil on urination, did not want to go down to , did not go to [place], does not want dialysis. The patient did sign a DNR. The patient when I saw her was not really have any trouble breathing, although her BNP was markedly elevated. Her chest x-ray showed heart failure, but her urine shows marked concentration. The patient is on SCDs and low-dose heparin. The patient otherwise will be admitted for further evaluation of the combination of medical problems including acute on top of chronic renal failure, acute on chronic diastolic heart failure, chronic elevated troponins and refuses to be transferred as noted. PAST MEDICAL HISTORY: Significant for cataracts, hearing loss, dizziness, headaches, chronic atrial fibrillation, heart murmur, cardiomyopathy, congestive heart failure, coronary artery disease, coronary artery bypass graft, pacemaker placement, anticoagulation with warfarin, hypercholesterolemia, hypertension, DVTs, history of Pes, abdominal sonograms show appendectomy, cholecystectomy, hysterectomy, GERD, renal disease, kidney disease. She has refused dialysis in the past. Joint replacement of the right hip and diabetes, parathyroid disease, parathyroidectomy, clotting problems and the likes. ALLERGIES: In any case, the patient has allergies to possibly OXYCODONE, PREGABALIN, but apparently takes gabapentin and EXENATIDE. SOCIAL HISTORY: The patient denies smoking, alcohol or drug use. Lives at home. FAMILY HISTORY: Noncontributory. MEDICATIONS: Reviewed and we will be holding some of her diuretics, although she is in heart failure, she is also in renal failure from the possibly dehydration, so we will try to balance is off. She seems to be breathing quite well as it is. PHYSICAL EXAMINATION: GENERAL: She is a pleasant white female, well-developed, well-nourished for a person of her age. The patient is alert and oriented. She is completely in fact with her DNR and no dialysis. HEENT: Head is atraumatic, normocephalic. Eyes: PERRLA without jaundice. Mouth and throat were normal. NECK: Supple. LUNGS: Diminished, mild rales in the bases, but nothing significant. CARDIOVASCULAR: Irregularly irregular rhythm, 2/6 systolic ejection murmur. ABDOMEN: Soft. EXTREMITIES: No clubbing, cyanosis. A +3-4 pitting edema. Pulses noted distally. NEUROLOGIC: Alert and oriented x 3. LABORATORY DATA: The patient's urine showed a marked concentration of urine. Her labs show that she is markedly dehydrated at 1.030 with greater than 40 white blood cells per high powered field. She is slightly anemic at 9.9, which is baseline. TSH is slightly elevated, but not significantly. Her creatinine did go down from 5 to 4.8 with some mild Lasix, but she is really not breathing that badly. Her oxygen saturation is good. She does have D-dimer of 1.99, but apparently we do not have a camera that can do the V/Q scan. Consequently, the patient is noted to not want to go ahead and be seen at another institution, so we will just keep her here and try to diurese her gently without dehydrating her as well. IMPRESSION: Significant dehydration, acute on top of chronic renal failure stage 5 with acute on top of chronic diastolic heart failure as well as chronic atrial fibrillation and chronic pain. The patient is a do no resuscitate. AN CARREON MD DR: ANA/luis JOB#: [id number] / [id number]
[2018-09-16] MEDS: traMADol 50 MG TABLET PO PRN (19:40)
[2018-09-16 20:42] VITALS: BP 105/63
[2018-09-16] MEDS: HEPARIN for SUB-Q USE 5,000 UNIT/ML VIAL. SQ SCH (21:35)
[2018-09-16 23:17] VITALS: BP 110/69
[2018-09-17 06:49] VITALS: BP 121/67
[2018-09-17] MEDS: INSULIN LISPRO 300 UNITS/3 ML INSULN.PEN. SQ SCH ×3 (07:30→17:12)
[2018-09-17] MEDS: MAGNESIUM OXIDE 400 MG TABLET PO SCH (08:23)
[2018-09-17] MEDS: CARVEDILOL 12.5 MG TABLET PO SCH ×2 (08:24→17:03)
[2018-09-17] MEDS: amLODIPine BESYLATE 10 MG TABLET PO SCH (08:24)
[2018-09-17] MEDS: PANTOPRAZOLE 40 MG TABLET. PO SCH ×2 (08:25→20:02)
[2018-09-17] MEDS: GABAPENTIN 100 MG CAPSULE. PO SCH ×2 (08:25→20:02)
[2018-09-17] MEDS: ASPIRIN 81 MG TAB.CHEW PO SCH (08:25)
[2018-09-17] MEDS: LOSARTAN 50 MG TABLET. PO SCH (08:27)
[2018-09-17] MEDS: INSULIN GLARGINE 300 UNITS/3 ML INSULN.PEN. SQ SCH ×2 (08:45→20:03)
[2018-09-17] MEDS: HEPARIN for SUB-Q USE 5,000 UNIT/ML VIAL. SQ SCH ×2 (09:00→20:03)
[2018-09-17] MEDS: FUROSEMIDE 40 MG/4 ML VIAL IVP SCH (09:00)
[2018-09-17] MEDS: traMADol 50 MG TABLET PO PRN (09:33)
[2018-09-17 11:23] VITALS: BP 116/66
[2018-09-17 15:00] VITALS: BP 123/67
--- NOTE | 2018-09-17 16:30 | PDOC2 ---
CONSULT Date of Admission DATE: 09/17/18 TIME: 16:15 Reason for Consult: atrial fibrillation, pacemaker Referring Physician: Dr. Herman Chief Complaint Swelling of her legs Source: Chart review, Patient Problem List Problems Medical Problems: (1) CHF (congestive heart failure) Status: Acute History of Present Illness The patient is an 88 year old female admitted with a chief complaint of progre ssive leg swelling. Her initial evaluation in the ER showed progressive renal dysfunction with a creat. of 5. CXR showed cardiomegally, heart failure and pleural effusions. She has a CV history of a CABG, pacemaker ([employer] placed in 2015) and atrial fibrillation and is followed at . She has refused dialysis or a transfer for renal evaluation. She is a DNR. Today she is feeling mildly better. She denies chest pain. Cardiovascular: AFIB, CAD, CHF, HTN, hyperipidemia Pulmonary: Pulmonary embolus Renal/: Other (progressive renal failure) Endocrine: Diabetes Past Surgical History: Appendectomy, Cholecystectomy, CABG, Hysterectomy, Pacemaker Family History: Heart Disease Smoke: No ALCOHOL: none Current Medications Current Medications Heparin Sodium (Porcine) (Heparin Sodium) 5,000 unit 1X ONCE SQ ; Start 09/15/18 at 23:00; Stop 09/15/18 at 23:00; Status DC Ceftriaxone Sodium 1 gm/ Sodium Chloride 50 ml @ 100 mls/hr 1X ONCE IV Last administered on 09/15/18at 23:56; Start 09/15/18 at 22:45; Stop 09/15/18 at 23:14; Status DC Furosemide (Lasix) 40 mg 1X ONCE IVP Last administered on 09/15/18at 23:55; Start 09/15/18 at 23:00; Stop 09/15/18 at 23:01; Status DC Heparin Sodium (Porcine) (Heparin Sq) 5,000 unit 1X ONCE SQ Last administered on 09/15/18at 23:57; Start 09/15/18 at 23:00; Stop 09/15/18 at 23:01; Status DC Sodium Chloride 50 ml @ As Directed STK-MED ONCE .ROUTE ; Start 09/15/18 at 23:07; Stop 09/16/18 at 16:22; Status DC Ceftriaxone Sodium (Rocephin) 1 gm STK-MED ONCE .ROUTE ; Start 09/15/18 at 23:07; Stop 09/15/18 at 23:08; Status DC Ondansetron HCl (Zofran) 4 mg PRN Q4HRS PRN IV NAUSEA/VOMITING; Start 09/15/18 at 23:30; Stop 09/16/18 at 23:29; Status DC Acetaminophen (Tylenol) 650 mg PRN Q4HRS PRN PO FEVER Last administered on 09/16/18at 14:24; Start 09/15/18 at 23:30; Stop 09/16/18 at 23:29; Status DC Furosemide (Lasix) 40 mg BID IVP Last administered on 09/16/18at 21:30; Start 09/16/18 at 09:00 Heparin Sodium (Porcine) (Heparin Sodium) 4,000 unit BID IV Last administered on 09/16/18at 08:37; Start 09/16/18 at 09:00; Stop 09/16/18 at 10:03; Status DC Acetaminophen/ Hydrocodone Bitart (Lortab 5/325) 1 tab PRN Q8HRS PRN PO PAIN; Start 09/16/18 at 08:15; Stop 09/16/18 at 16:23; Status DC Acetaminophen/ Hydrocodone Bitart (Lortab 5/325) 2 tab PRN Q8HRS PRN PO PAIN; Start 09/16/18 at 08:15; Stop 09/16/18 at 16:23; Status DC Amlodipine Besylate (Norvasc) 10 mg DAILY PO Last administered on 09/17/18 08:24; Start 09/16/18 at 09:00 Aspirin (Children'S Aspirin) 81 mg DAILYWBKFT PO Last administered on 09/17/18at 08:25; Start 09/17/18 at 08:00 Carvedilol (Coreg) 25 mg BIDWMEALS PO Last administered on 09/17/18at 08:24; Start 09/16/18 at 17:00 Docusate Sodium (Colace) 100 mg PRN DAILY PRN PO CONSTIPATION; Start 09/16/18 at 08:45 Insulin Glargine (Lantus) 12 units BID SQ Last administered on 09/16/18at 10:13; Start 09/16/18 at 09:00 Insulin Human Lispro (HumaLOG) 5 units TIDAC SQ Last administered on 09/17/18at 12:16; Start 09/16/18 at 11:30 Losartan Potassium (Cozaar) 50 mg DAILY PO ; Start 09/16/18 at 09:00 Magnesium Oxide (Magnesium Oxide) 200 mg DAILY PO Last administered on 09/17/18at 08:23; Start 09/16/18 at 09:00 Pantoprazole Sodium (Protonix) 40 mg BID PO Last administered on 09/17/18at 08:25; Start 09/16/18 at 09:00 Ondansetron HCl (Zofran Odt) 8 mg PRN Q12HR PRN PO NAUSEA/VOMITING; Start 09/16/18 at 08:45 Heparin Sodium (Porcine) (Heparin Sodium) 4,000 unit BID SQ Last administered on 09/16/18at 21:35; Start 09/16/18 at 21:00 Gabapentin (Neurontin) 100 mg BID PO Last administered on 09/17/18at 08:25; Start 09/16/18 at 15:15 Diclofenac Sodium (Voltaren) 1 lenny PRN QID PRN TP PAIN; Start 09/16/18 at 15:30 Tramadol HCl (Ultram) 50 mg PRN Q6HRS PRN PO PAIN Last administered on 09/17/18at 09:33; Start 09/16/18 at 19:15 Active Scripts Active Reported Magnesium Oxide 250 Mg Tablet 250 Mg PO DAILY Losartan Potassium 50 Mg Tablet 50 Mg PO DAILY Furosemide 80 Mg Tablet 2 Tab PO DAILY Humalog Mix 75-25 Kwikpen (Insulin Npl/Insulin Lispro) 100 Unit/1 Ml Insuln.pen 2-10 Unit SQ TIDAC SLIDING SCALE Amlodipine Besylate 5 Mg Tablet 1 Tab PO DAILY Gabapentin (Gabapentin) 100 Mg Capsule 100 Mg PO BID Carvedilol 25 Mg Tablet 25 Mg PO BIDWMEALS Vitamin D3 (Cholecalciferol (Vitamin D3)) 1,000 Unit Tablet 1 Tab PO DAILY Aspirin 81 Mg Tab.chew 81 Mg PO DAILY Atorvastatin Calcium 10 Mg Tablet 10 Mg PO QHS Metolazone 10 Mg Tablet 10 Mg PO DAILY Reglan (Metoclopramide Hcl) 10 Mg Tablet 5 Mg PO TIDAC Ondansetron Odt (Ondansetron) 4 Mg Tab.rapdis 8 Mg PO PRN Q12HR PRN Colace (Docusate Sodium) 100 Mg Capsule 100 Mg PO PRN DAILY PRN Levemir Flexpen (Insulin Detemir) 100 Unit/1 Ml Insuln.pen 12 Unit SQ BID Omeprazole 40 Mg Capsule.dr 40 Mg PO BID Allergies: Coded Allergies: exenatide (Verified Allergy, Intermediate, Nausea and Vomiting, 04/19/16) oxycodone (Verified Allergy, Intermediate, Nausea and Vomiting, 11/27/14) pregabalin (Verified Allergy, Intermediate, Rash, 04/19/16) General: YES: Fatigue Respiratory: YES: Shortness of breath General: mild distress Lungs: Other (decreased breath sounds) Heart: Regular rate Abdomen: Normal bowel sounds VITALS Vital Signs Date Time Temp Pulse Resp B/P (MAP) Pulse Ox O2 Delivery O2 Flow Rate FiO2 09/17/18 12:01 93 Nasal Cannula 2.0 09/17/18 11:23 97.3 75 116/66 (83) 09/17/18 06:49 14 Labs Laboratory Tests Test 09/15/18 21:45 09/16/18 01:15 09/16/18 06:00 09/16/18 12:12 White Blood Count 3.8 x10^3/uL (4.0-11.0) 3.6 x10^3/uL (4.0-11.0) Red Blood Count 3.37 x10^6/uL (3.50-5.40) 3.38 x10^6/uL (3.50-5.40) Hemoglobin 9.9 g/dL (12.0-15.5) 9.9 g/dL (12.0-15.5) Hematocrit 31.3 % (36.0-47.0) 31.2 % (36.0-47.0) Mean Corpuscular Volume 93 fL (79-100) 92 fL (79-100) Mean Corpuscular Hemoglobin 29 pg (25-35) 29 pg (25-35) Mean Corpuscular Hemoglobin Concent 32 g/dL (31-37) 32 g/dL (31-37) Red Cell Distribution Width 16.9 % (11.5-14.5) 16.5 % (11.5-14.5) Platelet Count 124 x10^3/uL (140-400) 127 x10^3/uL (140-400) Neutrophils (%) (Auto) 63 % (31-73) 57 % (31-73) Lymphocytes (%) (Auto) 27 % (24-48) 32 % (24-48) Monocytes (%) (Auto) 8 % (0-9) 9 % (0-9) Eosinophils (%) (Auto) 1 % (0-3) 1 % (0-3) Basophils (%) (Auto) 1 % (0-3) 1 % (0-3) Neutrophils # (Auto) 2.4 x10^3uL (1.8-7.7) 2.1 x10^3uL (1.8-7.7) Lymphocytes # (Auto) 1.0 x10^3/uL (1.0-4.8) 1.2 x10^3/uL (1.0-4.8) Monocytes # (Auto) 0.3 x10^3/uL (0.0-1.1) 0.3 x10^3/uL (0.0-1.1) Eosinophils # (Auto) 0.0 x10^3/uL (0.0-0.7) 0.1 x10^3/uL (0.0-0.7) Basophils # (Auto) 0.0 x10^3/uL (0.0-0.2) 0.0 x10^3/uL (0.0-0.2) Prothrombin Time 12.3 SEC (9.4-11.4) Prothromb Time International Ratio 1.2 (0.9-1.1) Activated Partial Thromboplast Time 28 SEC (23-33) D-Dimer (Praris) 1.99 mg/L (0.00-0.50) Urine Collection Type Unknown Urine Color Yellow Urine Clarity Turbid Urine pH 5.5 Urine Specific Manning >=1.030 Urine Protein 100 mg/dl (NEG-TRACE) Urine Glucose (UA) Neg mg/dL (NEG) Urine Ketones (Stick) Neg mg/dL (NEG) Urine Blood Mod (NEG) Urine Nitrite Neg (NEG) Urine Bilirubin Neg (NEG) Urine Urobilinogen Dipstick 0.2 mg/dL (0.2 mg/dL) Urine Leukocyte Esterase Large (NEG) Urine RBC 0 /HPF (0-2) Urine WBC >40 /HPF (0-4) Urine Squamous Epithelial Cells Occ /LPF Urine Bacteria Many /HPF (0-FEW) Sodium Level 143 mmol/L (136-145) 144 mmol/L (136-145) Potassium Level 4.0 mmol/L (3.5-5.1) 3.6 mmol/L (3.5-5.1) Chloride Level 108 mmol/L (98-107) 108 mmol/L (98-107) Carbon Dioxide Level 19 mmol/L (21-32) 21 mmol/L (21-32) Anion Gap 16 (6-14) 15 (6-14) Blood Urea Nitrogen 81 mg/dL (7-20) 81 mg/dL (7-20) Creatinine 5.0 mg/dL (0.6-1.0) 4.8 mg/dL (0.6-1.0) Estimated GFR (Cockcroft-Gault) 8.1 8.5 Glucose Level 197 mg/dL (70-99) 77 mg/dL (70-99) Calcium Level 8.6 mg/dL (8.5-10.1) 8.6 mg/dL (8.5-10.1) Magnesium Level 3.1 mg/dL (1.8-2.4) Total Bilirubin 0.3 mg/dL (0.2-1.0) Direct Bilirubin 0.1 mg/dL (0.0-0.2) Aspartate Amino Transf (AST/SGOT) 16 U/L (15-37) Alanine Aminotransferase (ALT/SGPT) 11 U/L (14-59) Alkaline Phosphatase 59 U/L (46-116) Creatine Kinase 44 U/L (26-192) Troponin I Quantitative 0.034 ng/mL (0-0.055) BH-Eno-H-Type Natriuretic Peptide 33296 pg/mL (0-449) Total Protein 6.9 g/dL (6.4-8.2) Albumin 3.4 g/dL (3.4-5.0) Triglycerides Level 198 mg/dL (0-150) Cholesterol Level 111 mg/dL (0-200) LDL Cholesterol, Calculated 59 mg/dL (0-100) VLDL Cholesterol, Calculated 39 mg/dL (0-40) Non-HDL Cholesterol Calculated 98 mg/dL (0-129) HDL Cholesterol 13 mg/dL (40-60) Cholesterol/HDL Ratio 8.0 Lipase 79 U/L (73-393) Thyroid Stimulating Hormone (TSH) 5.842 uIU/mL (0.358-3.740) Nasal Screen MRSA (PCR) Negative (Negative) Glucose (Fingerstick) 189 mg/dL (70-99) Test 09/16/18 16:44 09/16/18 20:59 09/17/18 07:45 09/17/18 11:52 Glucose (Fingerstick) 94 mg/dL (70-99) 68 mg/dL (70-99) 109 mg/dL (70-99) 176 mg/dL (70-99) Images CXR as above Assessment/Plan 1. Progressive renal dysfunction. Creat. today of 4.8. The patient has refused dialysis. Limited options. Continue present treatment and monitor lab. 2. Chronic atrial fibrillation. Pacemaker as above. Rate controlled. Continue medications. 3. Heart failure. ECHO in 2016 with normal LV function and mild . Will repeat ECHO for an update. However with progressive renal failure we may not be able to control her lower extremity swelling. 4. HTN. Controlled. 5. HLD. Thank you for allowing us to participate in the care of your patient. CRISTOFER GARZA MD Sep 17, 2018 16:29
[2018-09-17 16:47] LABS: CALCIUM 8.8 mg/dL (8.5-10.1); CREATININE 4.6 mg/dL (0.6-1.0); POTASSIUM 3.7 mmol/L (3.5-5.1)
[2018-09-17 19:31] VITALS: BP 103/60
[2018-09-17 23:02] VITALS: BP 114/67
[2018-09-18 05:39] VITALS: BP 121/61
[2018-09-18 06:10] LABS: CALCIUM 8.8 mg/dL (8.5-10.1); CREATININE 4.6 mg/dL (0.6-1.0); MAGNESIUM 2.8 mg/dL (1.8-2.4); POTASSIUM 3.7 mmol/L (3.5-5.1)
[2018-09-18] MEDS: HEPARIN for SUB-Q USE 5,000 UNIT/ML VIAL. SQ SCH ×2 (07:02→19:59)
--- NOTE | 2018-09-18 07:22 | PDOC ---
CARDIO Progress Notes Date & Time Date of Service DATE: 09/18/18 TIME: 07:14 Time of Evaluation 07:14 Subjective Notes Le edema better. No SOA Vitals Vitals Vital Signs Date Time Temp Pulse Resp B/P (MAP) Pulse Ox O2 Delivery O2 Flow Rate FiO2 09/18/18 05:39 97.9 75 16 121/61 (81) 92 Nasal Cannula 3.0 Weight Weight [ ] Input and Output I.O. Intake and Output 09/18/18 07:00 Intake Total 840 ml Balance 840 ml Intake Oral 840 ml # Voids 2 Laboratory Labs Laboratory Tests Test 09/16/18 12:12 09/16/18 16:44 09/16/18 20:59 09/17/18 07:45 Glucose (Fingerstick) 189 mg/dL (70-99) 94 mg/dL (70-99) 68 mg/dL (70-99) 109 mg/dL (70-99) Test 09/17/18 11:52 09/17/18 16:35 09/17/18 19:51 09/18/18 05:45 Glucose (Fingerstick) 176 mg/dL (70-99) 148 mg/dL (70-99) Sodium Level 139 mmol/L (136-145) 140 mmol/L (136-145) Potassium Level 3.7 mmol/L (3.5-5.1) 3.7 mmol/L (3.5-5.1) Chloride Level 105 mmol/L (98-107) 106 mmol/L (98-107) Carbon Dioxide Level 19 mmol/L (21-32) 21 mmol/L (21-32) Anion Gap 15 (6-14) 13 (6-14) Blood Urea Nitrogen 81 mg/dL (7-20) 79 mg/dL (7-20) Creatinine 4.6 mg/dL (0.6-1.0) 4.6 mg/dL (0.6-1.0) Estimated GFR (Cockcroft-Gault) 9.0 9.0 Glucose Level 250 mg/dL (70-99) 115 mg/dL (70-99) Calcium Level 8.8 mg/dL (8.5-10.1) 8.8 mg/dL (8.5-10.1) Magnesium Level 2.8 mg/dL (1.8-2.4) Physical Exams HEENT: Neck Supple W Full Motion Chest: Symmetric Lungs: Other (fine bibasilar crackles ) Heart: S1S2, irregularly irregular Abdomen: Soft N/T Extremities: Other (2+ bilateral LE edema ) Neurology: alert, oriented, follow commands Assessment Assessment 1. Acute on chronic diastolic HF; improved with diuresis 2. Chronic AFIB; rate controlled. 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 SSS s/p PPM; intermittent pacing 4. CAD s/p CABG; clinically stable. CP free. Follows with Dr. Bautista with [facility] 5. JOCELYN on CKD; Cr remains at 4.6. Does not want HD 6. Hypertension; controlled 7. Hyperlipidemia; LDL 59 8. Hypothyroidism Recommendations Echo to assess LV systolic function Mild diuresis with close monitoring of renal function Diuresis difficult due to progressive renal dysfunction Secondary prevention measures. ASA for stroke prevention. Deemed poor candidate for OAC in the past Supportive care ELIUD GEE APRN Sep 18, 2018 07:22
[2018-09-18] MEDS: INSULIN LISPRO 300 UNITS/3 ML INSULN.PEN. SQ SCH ×3 (07:30→17:04)
[2018-09-18] MEDS: ASPIRIN 81 MG TAB.CHEW PO SCH (08:08)
[2018-09-18] MEDS: MAGNESIUM OXIDE 400 MG TABLET PO SCH (08:09)
[2018-09-18] MEDS: amLODIPine BESYLATE 10 MG TABLET PO SCH (08:09)
[2018-09-18] MEDS: CARVEDILOL 12.5 MG TABLET PO SCH ×2 (08:09→16:42)
[2018-09-18] MEDS: PANTOPRAZOLE 40 MG TABLET. PO SCH ×2 (08:10→20:28)
[2018-09-18] MEDS: LOSARTAN 50 MG TABLET. PO SCH (08:10)
[2018-09-18] MEDS: FUROSEMIDE 40 MG TABLET PO SCH (08:10)
[2018-09-18] MEDS: GABAPENTIN 100 MG CAPSULE. PO SCH ×2 (08:10→16:08)
[2018-09-18] MEDS: INSULIN GLARGINE 300 UNITS/3 ML INSULN.PEN. SQ SCH ×2 (08:12→20:37)
[2018-09-18 10:49] VITALS: BP 93/59
[2018-09-18 15:24] VITALS: BP 111/57
--- NOTE | 2018-09-18 15:53 | PN ---
DATE: SUBJECTIVE: The patient is resting fairly comfortably. She is still having second thoughts of being transferred. I recommended several times for her to be transferred for Nephrology and Cardiology consultation. She does not want dialysis at present. There may be other things that they might be able to do for, that are not available at this facility. I talked with her and several family members about the situation. OBJECTIVE: VITAL SIGNS: The patient's blood pressure is 120/60, respiratory rate 18, pulse 75, afebrile, oxygen saturation 93%. GENERAL: The patient is alert and oriented. LUNGS: Diminished, some rhonchi in the bases. CARDIOVASCULAR: Irregularly irregular rhythm. ABDOMEN: Soft, nontender. EXTREMITIES: No clubbing, cyanosis. There is +2 to 3 pitting edema in the extremities. NEUROLOGIC: As noted. Alert and oriented. LABORATORY DATA: The patient's BUN and creatinine is approximately 81 and 4.6. Blood sugars have been vacillating anywhere from 68 to 250. Sodium and potassium 139 and 3.7. Carbon dioxide being as 19 and anion gap 15. Again, I recommended to her to be transferred and she is going to think about it. IMPRESSION: Acute on top of chronic renal failure, acute on chronic diastolic heart failure, chronic atrial fibrillation, hypothyroidism. PLAN: As above. Hopefully, ready for transfer to in the morning that is where her physicians are. NA CARREON MD DR: ANA/luis JOB#: [id number] / [id number]
[2018-09-18 19:26] VITALS: BP 113/62
[2018-09-18] MEDS: traMADol 50 MG TABLET PO PRN (20:28)
[2018-09-18] MEDS: NYSTATIN TOPICAL POWDER 15GM BOTTLE. TP SCH (21:00)
[2018-09-18 22:38] VITALS: BP 110/62
[2018-09-19 06:41] VITALS: BP 111/58
[2018-09-19] MEDS: amLODIPine BESYLATE 10 MG TABLET PO SCH (07:58)
[2018-09-19] MEDS: MAGNESIUM OXIDE 400 MG TABLET PO SCH (07:58)
[2018-09-19] MEDS: CARVEDILOL 12.5 MG TABLET PO SCH ×2 (07:59→17:00)
[2018-09-19] MEDS: ASPIRIN 81 MG TAB.CHEW PO SCH (07:59)
[2018-09-19] MEDS: FUROSEMIDE 40 MG TABLET PO SCH (07:59)
[2018-09-19] MEDS: GABAPENTIN 100 MG CAPSULE. PO SCH ×2 (07:59→20:12)
[2018-09-19] MEDS: PANTOPRAZOLE 40 MG TABLET. PO SCH ×2 (08:00→20:12)
[2018-09-19] MEDS: HEPARIN for SUB-Q USE 5,000 UNIT/ML VIAL. SQ SCH ×2 (08:00→20:07)
[2018-09-19] MEDS: LOSARTAN 50 MG TABLET. PO SCH (08:00)
[2018-09-19] MEDS: INSULIN LISPRO 300 UNITS/3 ML INSULN.PEN. SQ SCH ×3 (08:04→17:12)
[2018-09-19] MEDS: INSULIN GLARGINE 300 UNITS/3 ML INSULN.PEN. SQ SCH ×2 (08:05→20:08)
[2018-09-19] MEDS: NYSTATIN TOPICAL POWDER 15GM BOTTLE. TP SCH ×2 (08:52→20:13)
[2018-09-19] MEDS: AMOXICILLIN 250 MG CAPSULE PO SCH ×2 (09:02→20:12)
[2018-09-19 10:27] VITALS: BP 105/57
[2018-09-19 14:39] VITALS: BP 97/55
[2018-09-19] MEDS: traMADol 50 MG TABLET PO PRN (15:47)
--- NOTE | 2018-09-19 16:07 | CARD ---
MR#: [id number] Date of Study: 09/19/2018 Ordering Physician: CRISTOFER GARZA, Referring Physician: AN CARREON, Tech: Belen Dow APPROVED REPORT EXAM: Two-dimensional and M-mode echocardiogram with Doppler and color Doppler. Other Information Quality : AverageHR: 69bpm Rhythm : Bradycardia INDICATION COPD Dyspnea Congestive Heart Failure Surgery/Intervention CABG: Date: 1999 RISK FACTORS Hypertension 2D DIMENSIONS RVDd2.9 (2.9-3.5cm)IVSd1.3 (0.7-1.1cm) Aortic Root(2D)2.6 (2.0-3.7cm)LVDd4.0 (3.9-5.9cm) PWd1.0 (0.7-1.1cm)LVDs1.9 (2.5-4.0cm) FS (%) 52.4 %SV57.5 ml LVEF(%)84.0 (>50%) Aortic Valve AoV Peak Timur.310.2cm/sAoV VTI79.3cm AO Peak GR.38.5mmHgAO Mean GR.30mmHg ISABELLA (VTI)0.76cm2 Mitral Valve MV E Lowqghei841.4cm/sMV DECEL [id number] MV A Kljzfpkd06.7cm/sE/A Ratio2.5 Tricuspid Valve TR P. Nvftwccq114su/sRAP [id number] TR Peak Gr.[id number] LEFT VENTRICLE The left ventricle is normal size. There is mild to moderate concentric left ventricular hypertrophy. The left ventricular systolic function is normal. The Ejection Fraction is 60%. There is normal LV s egmental wall motion. Tissue Doppler imaging reveals moderate left ventricular diastolic dysfunction. RIGHT VENTRICLE The right ventricle is mildly dilated. There is normal right ventricular wall thickness. Systolic fun ction is borderline reduced. ATRIA The left atrium size is normal. The right atrium size is normal. The interatrial septum is intact wit h no evidence for an atrial septal defect or patent foramen ovale as noted on 2-D or Doppler imaging. AORTIC VALVE The aortic valve is calcified but opens well. Doppler and Color Flow revealed no significant aortic r egurgitation. Calculated aortic valve area is .8 cm2 with maximum pressure gradient of 38 mmHg and me an pressure gradient of 30 mmHg. Doppler and color-flow analysis revealed moderate aortic stenosis. MITRAL VALVE Mitral annular calcification is moderate. There is no evidence of mitral valve prolapse. There is no mitral valve stenosis. Doppler and Color-flow revealed trace mitral regurgitation. TRICUSPID VALVE The tricuspid valve is normal in structure and function. Doppler and Color Flow revealed trace tricus pid regurgitation with an estimated PAP of 30 mmHg. There is no tricuspid valve stenosis. PULMONIC VALVE The pulmonic valve is not well visualized. Doppler and Color Flow revealed no pulmonic valvular regur gitation. GREAT VESSELS The aortic root is normal in size. The IVC was not well visualized. PERICARDIAL EFFUSION There is small left pleural effusion. There is no evidence of significant pericardial effusion. Critical Notification Critical Value: No <Conclusion> The left ventricular systolic function is normal. The Ejection Fraction is 60%. There is normal LV segmental wall motion. Tissue Doppler imaging reveals moderate left ventricular diastolic dysfunction. Moderate aortic stenosis with mean pressure gradient of 30 mmHg. Trace mitral regurgitation. Trace tricuspid regurgitation with an estimated PAP of 30 mmHg. There is no evidence of significant pericardial effusion. Signed by : Ishaan Rizzo, Electronically Approved : 09/19/2018 16:07:34
[2018-09-19 20:03] VITALS: BP 92/57
--- NOTE | 2018-09-19 22:58 | PN ---
DATE: SUBJECTIVE: This is an 88-year-old female comes in with acute on top of chronic congestive heart failure, acute on top of chronic renal failure. The patient has been denied by [facility] because she does not want to go through dialysis, although she is rethinking that. Trying to put her on to hospice for now and we will continue to monitor there. Otherwise, she is alert and oriented. OBJECTIVE: VITAL SIGNS: Blood pressure 110/60, respiratory rate 22, pulse 77, afebrile. GENERAL: The patient is alert and oriented. LUNGS: Diminished with crackles in the bases. CARDIOVASCULAR: Irregularly irregular rhythm. ABDOMEN: Soft, nontender. EXTREMITIES: No clubbing, cyanosis. +3 pitting edema. LABORATORY DATA: The patient's I and O still show a slight increase in her weight from 59.1 to 60.0. PLAN: Otherwise continued to be monitored and discussed her and her family, answered questions, and let us know. Otherwise, she will be started on some antibiotic for apparently she has got a streptococcal type of infection - Streptococcus species noted in her urine. AN CARREON MD DR: ANA/luis JOB#: [id number] / [id number]
[2018-09-20 05:35] VITALS: BP 113/68
[2018-09-20] MEDS: MAGNESIUM OXIDE 400 MG TABLET PO SCH (06:54)
[2018-09-20] MEDS: HEPARIN for SUB-Q USE 5,000 UNIT/ML VIAL. SQ SCH (07:08)
[2018-09-20] MEDS: INSULIN LISPRO 300 UNITS/3 ML INSULN.PEN. SQ SCH ×2 (07:30→11:30)
[2018-09-20] MEDS: INSULIN GLARGINE 300 UNITS/3 ML INSULN.PEN. SQ SCH (07:47)
[2018-09-20] MEDS: AMOXICILLIN 250 MG CAPSULE PO SCH (08:28)
[2018-09-20] MEDS: ASPIRIN 81 MG TAB.CHEW PO SCH (08:28)
[2018-09-20] MEDS: CARVEDILOL 12.5 MG TABLET PO SCH (08:28)
[2018-09-20] MEDS: GABAPENTIN 100 MG CAPSULE. PO SCH (08:29)
[2018-09-20] MEDS: NYSTATIN TOPICAL POWDER 15GM BOTTLE. TP SCH (08:29)
[2018-09-20] MEDS: PANTOPRAZOLE 40 MG TABLET. PO SCH (08:29)
[2018-09-20] MEDS ORDERED: LACTOBACILLUS RHAMNOSUS GG 1 CAPSULE. PO SCH (09:00)
[2018-09-20] MEDS: LOSARTAN 50 MG TABLET. PO SCH (09:00)
[2018-09-20] MEDS: FUROSEMIDE 40 MG TABLET PO SCH (09:00)
[2018-09-20] MEDS: amLODIPine BESYLATE 10 MG TABLET PO SCH (09:00)
[2018-09-20 10:13] VITALS: BP 101/61
[2018-09-20] MEDS: traMADol 50 MG TABLET PO PRN (11:46)
--- NOTE | 2018-09-25 15:27 | EKG ---
[address] [address] Test Date: 2018-09-15 Test Time: 21:46:34 Pat Name: JAMEEL AC Department: Room: 113 A Gender: F Scientific Research Associate: : [id number] Requested By: SLADE ARIAS Order Number: [id number] Reading MD: Measurements Intervals [place] Rate: P: VT: QRS: QRSD: T: QT: QTc: Interpretive Statements
== END 2018-09-20 13:08 | disposition hospice, home (50) | DRG 682 ==
LOC: ER 21:19 → 1 SOUTH 23:00
PROVIDERS: ADMIT Family Medicine; ATTEND Family Medicine
DX: N17.9 Acute kidney failure, unspecified (principal); I50.33 Acute on chronic diastolic (congestive) heart failure; I13.2 Hypertensive heart and chronic kidney disease with heart failure and with stage 5 chronic kidney disease, or end stage renal disease; N39.0 Urinary tract infection, site not specified; I42.9 Cardiomyopathy, unspecified; I48.2 Chronic atrial fibrillation; I25.10 Atherosclerotic heart disease of native coronary artery without angina pectoris; K21.9 Gastro-esophageal reflux disease without esophagitis; Z66 Do not resuscitate; D64.9 Anemia, unspecified; D69.6 Thrombocytopenia, unspecified; E78.5 Hyperlipidemia, unspecified; E78.00 Pure hypercholesterolemia, unspecified; E11.22 Type 2 diabetes mellitus with diabetic chronic kidney disease; E03.9 Hypothyroidism, unspecified; H91.90 Unspecified hearing loss, unspecified ear; G89.29 Other chronic pain; E86.0 Dehydration; I49.5 Sick sinus syndrome; N18.5 Chronic kidney disease, stage 5; Z79.01 Long term (current) use of anticoagulants; Z90.710 Acquired absence of both cervix and uterus; Z95.1 Presence of aortocoronary bypass graft; Z90.49 Acquired absence of other specified parts of digestive tract; Z88.5 Allergy status to narcotic agent; Z95.0 Presence of cardiac pacemaker; Z86.711 Personal history of pulmonary embolism
CPT/HCPCS: 36415; 71045; 80048; 80061; 80076; 81001; 82550; 82947; 83690; 83735; 83880; 84443; 84484; 85025; 85379; 85610; 85730; 87086; 87186; 87641; 93005; 93306; 93970; 96365; 96372; 96375; J0696; J1644; J1815; J1940; 97530; 99285-25